=== PATIENT | male | born 1950 | race Caucasian/White ===

== ENCOUNTER 2016-07-30 13:13 | Outpatient (CLI) | payer MEDICARE, OTHER | END 2016-07-30 13:14 | disposition home or self-care (01) | DX: D53.9 Nutritional anemia, unspecified (principal) ==

== ENCOUNTER 2016-08-17 | Outpatient (CLI) | payer MEDICARE, OTHER | END 2016-08-17 09:59 | disposition home or self-care (01) | DX: D53.9 Nutritional anemia, unspecified (principal) ==

== ENCOUNTER 2016-08-22 09:52 | Outpatient (CLI) | payer MEDICARE, OTHER ==
[2016-08-22] MEDS ORDERED: IOPAMIDOL-300 100 ML VIAL IVP ONE (17:36)
== END 2016-08-22 09:53 | disposition critical access hospital (66) ==
DX: R42 Dizziness and giddiness (principal); R11.0 Nausea
CPT/HCPCS: A0425; A0429; Q9967

== ENCOUNTER 2016-08-22 10:21 | Observation (INO) | payer MEDICARE, OTHER ==
[2016-08-22] MEDS ORDERED: HYDROcod/ACETAM 5/325 MG TABLET PO PRN (15:46)
[2016-08-22] MEDS ORDERED: PROCHLORPERAZINE 10 MG/2 ML VIAL IVP PRN (15:46)
[2016-08-22] MEDS ORDERED: SODIUM CHLORIDE FLUSH 0.9% 10 ML SYRINGE IVP PRN (15:46)
[2016-08-22] MEDS ORDERED: HYDROcod/ACETAM 10 MG/325 MG TABLET PO PRN (15:46)
[2016-08-22] MEDS ORDERED: ONDANSETRON 4 MG/2 ML VIAL IVP PRN (15:46)
[2016-08-22] MEDS ORDERED: ACETAMINOPHEN 325 MG TABLET PO PRN (15:46)
[2016-08-22] MEDS ORDERED: IMATINIB MESYLATE 400 MG PO SCH (17:30)
[2016-08-22] MEDS ORDERED: IMATINIB MESYLATE 100 MG PO SCH (17:30)
[2016-08-22] MEDS: SODIUM CHLORIDE 0.9% 1,000 ML IV SCH (17:32)
[2016-08-22] MEDS ORDERED: IOPAMIDOL-300 100 ML VIAL IVP ONE (17:36)
[2016-08-22] MEDS: ASPIRIN 325 MG TABLET PO SCH (19:04)
[2016-08-22] MEDS ORDERED: SODIUM CHLORIDE 0.9% 1,000 ML IV ONE (20:18)
[2016-08-22] MEDS: SODIUM CHLORIDE FLUSH 0.9% 10 ML SYRINGE IVP SCH (20:48)
[2016-08-22] MEDS ORDERED: ATORVASTATIN 40 MG TABLET PO SCH (21:00)
[2016-08-22] MEDS ORDERED: ZOLPIDEM 5 MG TABLET PO PRN (21:48)
[2016-08-23] MEDS: SODIUM CHLORIDE 0.9% 1,000 ML IV SCH ×2 (05:02→12:16)
[2016-08-23] MEDS: SODIUM CHLORIDE FLUSH 0.9% 10 ML SYRINGE IVP SCH (05:02)
[2016-08-23] MEDS ORDERED: SUCRALFATE 1 GM/10 ML UDC PO SCH (07:00)
[2016-08-23] MEDS ORDERED: PANTOPRAZOLE 40 MG TABLET PO SCH (07:00)
[2016-08-23] MEDS ORDERED: MULTIVITAMIN TABLET PO SCH (08:00)
[2016-08-23] MEDS ORDERED: FERROUS GLUCONATE 324 MG TABLET PO SCH (08:00)
[2016-08-23] MEDS: ASPIRIN 325 MG TABLET PO SCH (08:58)
[2016-08-23] MEDS ORDERED: POLYETHYLENE GLYCOL 3350 17 GM PACKET PO SCH (09:00)
== END 2016-08-23 12:40 | disposition home or self-care (01) ==
DX: R27.0 Ataxia, unspecified (principal); R42 Dizziness and giddiness; D50.9 Iron deficiency anemia, unspecified; N17.9 Acute kidney failure, unspecified; R11.2 Nausea with vomiting, unspecified; I65.01 Occlusion and stenosis of right vertebral artery; C92.11 Chronic myeloid leukemia, BCR/ABL-positive, in remission; K21.9 Gastro-esophageal reflux disease without esophagitis; I73.9 Peripheral vascular disease, unspecified; Z87.891 Personal history of nicotine dependence; Z86.718 Personal history of other venous thrombosis and embolism; Z79.899 Other long term (current) drug therapy
CPT/HCPCS: 36415; 70450; 70496; 70498; 80048; 80053; 80061; 81003; 83540; 84466; 84484; 85025; 85610; 93005; 93010; 93306; 96361; 96374; 97161; 99284; 99285; A9270; G0378; G8978; G8979; G8980; Q9967

== ENCOUNTER 2016-08-31 14:34 | Outpatient (CLI) | payer MEDICARE, OTHER | END 2016-08-31 14:35 | disposition home or self-care (01) | DX: D53.9 Nutritional anemia, unspecified (principal) ==

== ENCOUNTER 2016-09-07 08:00 | Outpatient (CLI) | payer MEDICARE, OTHER | END 2016-09-07 08:01 | disposition home or self-care (01) | DX: D53.9 Nutritional anemia, unspecified (principal) ==

== ENCOUNTER 2016-11-22 13:04 | Outpatient (CLI) | payer MEDICARE, OTHER | END 2016-11-22 13:05 | disposition home or self-care (01) | DX: D64.9 Anemia, unspecified (principal) ==

== ENCOUNTER 2017-01-26 08:00 | Outpatient (CLI) | payer MEDICARE, OTHER | END 2017-01-26 08:01 | disposition home or self-care (01) | LOC: LAB.R 08:00 | PROVIDERS: ATTEND Nurse Practitioner Family | DX: L03.012 Cellulitis of left finger (principal) | CPT/HCPCS: 87070; 87205 ==

== ENCOUNTER 2017-08-17 13:50 | Outpatient (CLI) | payer MEDICARE, OTHER | END 2017-08-17 13:51 | disposition home or self-care (01) | LOC: LAB.R 13:50 | PROVIDERS: ATTEND Surgery | DX: L02.211 Cutaneous abscess of abdominal wall (principal) | CPT/HCPCS: 87070; 87077; 87205 ==

== ENCOUNTER 2017-08-21 14:11 | Inpatient (IN) | payer MEDICARE, OTHER ==
[~2017-08-21 14:11] MED LIST: DEXAMETHASONE 4 MG/ML VIAL IVP ONE; LIDOCAINE-MPF 2% 5 ML VIAL IM ONE; MIDAZOLAM 2 MG/2 ML VIAL IVP ONE; ONDANSETRON 4 MG/2 ML VIAL IVP ONE; PROPOFOL 200 MG/20 ML VIAL IVP ONE; SUCCINYLCHOLINE 200 MG/10 ML VIAL IVP ONE; ceFAZolin 1 GM VIAL IV ONE; fentaNYL 100 MCG/2 ML VIAL IVP ONE
[2017-08-21] MEDS ORDERED: SODIUM CHLORIDE FLUSH 0.9% 10 ML SYRINGE IVP PRN (14:21)
[2017-08-21] MEDS ORDERED: IOPAMIDOL-300 100 ML VIAL IVP ONE ×2 (14:22→17:38)
--- NOTE | 2017-08-21 14:49 | POST OP PROGRESS NOTE ---
Subjective - General Procedure Date: 08/21/17 Post Op Days: 0 Procedure Performed: Incision and drainage of left flank abscess - Other Other Information/Narrative: Indication for Procedure: left flank abscess for 1 week status post I and D in office with persistent copious drainage at home. Cultures obtained from office I and D indicate that he is growing E.coli and Klebsiella pneumonia Surgeon: Dr. Spence Anesthesia Provider: Rodney Ellis Pre Operative Diagnosis: left flank abscess Post Operative Diagnosis: same Findings: After obtaining informed consent the patient was brought into the operating room and intubated. He was positioned on the table in the prone position. He was prepped and draped in the usual sterile fashion and a timeout was taken according to protocol. Perioperative antibiotics were administered. An incision was made extending the previous flank incision to 6cm. A minimal amount of purulent fluid was evacuated and cultures were obtained. The surgeons finger was used to open the abscess cavity. It was noting to be traking at least 5 cm deep, cephalad towards the thorax and medially. The flank musculatrure was retracted medially to attempt to determine the end point of the track, however, division of the musculature would be required to fully assess the cavity. I elected to defer further dissection as to not inadvertently enter the thoracic or peritoneal cavities and obtain post operative CT scans. The pulse confectionery maker was used to lavage the wound with saline. After washing with 1 liter of saline the wound bed was inspected for bleeding and hemostasis was achieved with electrocautery. 30 cc of marcaine was injected. The wound was packed with betadine soaked kerlix. A dry dressing was applied and the patient extubated and taken to recovery in stable condition. EBL: minimal Specimen: flank wound cultures Complications: None
[2017-08-21] MEDS ORDERED: LACTATED RINGERS 1,000 ML IV ONE (15:00)
[2017-08-21] MEDS ORDERED: IOPAMIDOL-300 100 ML VIAL ONE (15:11)
[2017-08-21] MEDS ORDERED: BUPIVACAINE 0.25%-EPI 1:200000 PF 30 ML VIAL SUBQ ONE (15:37)
[2017-08-21] MEDS ORDERED: ceFAZolin 1 GM in SODIUM CHLORIDE 0.9% MINIBAG 100 ML IV SCH ×2 (17:00→22:00)
[2017-08-21 18:09] LABS: BASOPHILS % (AUTO) 0.2 %; HGB - HEMOGLOBIN 8.4 g/dL (14.0-18.0); LYMPHOCYTES # (AUTO) 0.1 10^3/uL (1.5-3.5); LYMPHOCYTES % (AUTO) 1.6 %; MEAN CORPUSCULAR HGB CONC 33.7 g/dL (32.0-36.0); MEAN CORPUSCULAR VOLUME 94.9 fL (80.0-94.0); MEAN PLATELET VOLUME 6.5 fL (7.4-11.4); MONOCYTES # (AUTO) 0.1 10^3/uL (0.0-1.0); MONOCYTES % (AUTO) 1.4 %; NEUTROPHILS # (AUTO) 8.4 10^3/uL (1.5-6.6); NEUTROPHILS % (AUTO) 96.8 %; PLT - PLATELET COUNT 439 10^3/uL (130-450); RED BLOOD COUNT 2.62 10^6/uL (4.70-6.10); RED CELL DISTRIBUTION WIDTH 16.2 % (12.0-15.0); WHITE BLOOD COUNT 8.7 x10^3/uL (4.8-10.8)
[2017-08-21] MEDS: LACTATED RINGERS 1,000 ML IV SCH (18:42)
[2017-08-21] MEDS: metroNIDAZOLE 500 MG/100 ML 500 MG/100 ML BAG IV SCH (20:12)
[2017-08-21] MEDS: ONDANSETRON ODT 4 MG TABLET TL PRN (20:12)
--- NOTE | 2017-08-21 21:41 | CT Report ---
EXAM: CT ABDOMEN AND PELVIS EXAM DATE: 08/21/2017 05:39 PM. CLINICAL HISTORY: Flank abscess growing e.coli. Recent surgery today. COMPARISONS: CT 07/08/2015. TECHNIQUE: Routine helical CT imaging was performed through the abdomen and pelvis. IV contrast: 50ML OF ISOVUE 300. Enteric contrast: No. Reconstructions: Coronal and sagittal. In accordance with CT protocol optimization, one or more of the following dose reduction techniques w ere utilized for this exam: automated exposure control, adjustment of mA and/or KV based on patient s ize, or use of iterative reconstructive technique. FINDINGS: Lung Bases: Please see same day CT of the chest for details Liver: Normal. No masses. Gallbladder/Bile Ducts: Unremarkable. Spleen: Normal. Pancreas: Normal. Adrenal Glands: Normal. Kidneys: Normal. No masses or hydronephrosis. Peritoneal Cavity/Bowel: No obstruction. Scattered colonic diverticula without CT evidence of acute d iverticulitis. Otherwise Unremarkable bowel. The appendix is not discretely identified, however no se condary signs of acute appendicitis are seen in the right lower quadrant. Pelvic Organs: Normal. The bladder and visualized pelvic organs are within normal limits. Vasculature: Moderate atherosclerotic calcification of the aorta and its branches. IVC filter at the level of the kidneys. Femoral-femoral bypass. Bones: Mild degenerative changes in the spine, with mild retrolisthesis of L2 on L3. Other: There is an open defect in the left posterolateral chest wall/flank, with packing material wit hin the defect. The defect extends through the abdominal/chest wall musculature into the extraperiton eal space in the abdomen. Packing material and air abuts the left paracolic gutter and upper pole of the left kidney. Packing material abuts the left psoas muscle, and there are additional foci of air i n the left paraspinous muscles. IMPRESSION: 1. Open defect over the left flank with air and packing material extending to the left paracolic gutt er, upper pole of the left kidney, left psoas muscle and left paraspinous muscles. 2. No other acute findings in the abdomen and pelvis. [facility] Referring Provider Line: [phone] SITE ID: [id number]
--- NOTE | 2017-08-21 21:51 | CT Report ---
EXAM: CT CHEST EXAM DATE: 08/21/2017 05:22 PM. CLINICAL HISTORY: Flank abscess extending towards thorax. COMPARISONS: Correlation made to same day CT of the abdomen and pelvis. TECHNIQUE: Routine helical CT imaging was performed through the chest. IV contrast: 50 mL Isovue-300. Reconstructions: Coronal and sagittal. In accordance with CT protocol optimization, one or more of the following dose reduction techniques w ere utilized for this exam: automated exposure control, adjustment of mA and/or KV based on patient s ize, or use of iterative reconstructive technique. FINDINGS: Lungs/Pleura left basilar atelectasis: An open lower chest wall/flank defect is present on the left. Air extends from the open wound superio rly towards the chest, and there is a small amount of air just posterior to the left pleural space. T here is a small left pleural effusion, predominantly basilar. In the remainder of the chest, there is a 6 mm nodule in the right middle lobe. No bronchial thickeni ng, consolidation, or edema. Pulmonary vasculature is normal. No pericardial effusion. No pneumothora x. Mediastinum: Normal. No adenopathy or masses. The heart is normal in size. There is coronary artery c alcification. No pericardial effusion. The great vessels are normal in course and caliber.. Bones: Unremarkable. Visualized Abdomen: Separately reported Other: None. IMPRESSION: 1. Open lower chest wall/flank defect with small amount of air tracking superiorly, just posterior to the left pleural space. Small left pleural effusion. 2. 6 mm nodule in the right middle lobe. Recommend follow-up of the described nodule(s) according to the following guidelines: Fleischner Society Recommendations 2017 MacMahon et al. Radiology 2017 Solid Nodules-Low Risk Patients: 6-8 mm (single) -CT 6-12 at months, then consider CT at 18-24 months Solid Nodules-High Risk Patients: 6-8 mm (single) -CT at 6-12 months, then CT at 18-24 months. [facility] Referring Provider Line: [phone] SITE ID: [id number]
[2017-08-21] MEDS: SODIUM CHLORIDE FLUSH 0.9% 10 ML SYRINGE IVP SCH (22:54)
[2017-08-21] MEDS: ceFAZolin 1 GM in SODIUM CHLORIDE 0.9% MINIBAG 100 ML IV SCH (23:05)
[2017-08-22] MEDS: metroNIDAZOLE 500 MG/100 ML 500 MG/100 ML BAG IV SCH ×4 (02:08→20:52)
[2017-08-22] MEDS: SODIUM CHLORIDE FLUSH 0.9% 10 ML SYRINGE IVP SCH ×3 (04:07→20:57)
[2017-08-22] MEDS: LACTATED RINGERS 1,000 ML IV SCH ×2 (05:24→18:03)
[2017-08-22 05:57] LABS: BASOPHILS % (AUTO) 0.1 %; HGB - HEMOGLOBIN 7.7 g/dL (14.0-18.0); LYMPHOCYTES # (AUTO) 0.3 10^3/uL (1.5-3.5); LYMPHOCYTES % (AUTO) 3.5 %; MEAN CORPUSCULAR HEMOGLOBIN 31.9 pg (27.0-31.0); MEAN CORPUSCULAR HGB CONC 32.7 g/dL (32.0-36.0); MEAN CORPUSCULAR VOLUME 97.9 fL (80.0-94.0); MEAN PLATELET VOLUME 7.2 fL (7.4-11.4); MONOCYTES # (AUTO) 0.2 10^3/uL (0.0-1.0); MONOCYTES % (AUTO) 2.9 %; NEUTROPHILS % (AUTO) 93.5 %; PLT - PLATELET COUNT 394 10^3/uL (130-450); RED BLOOD COUNT 2.42 10^6/uL (4.70-6.10); RED CELL DISTRIBUTION WIDTH 16.3 % (12.0-15.0); WHITE BLOOD COUNT 7.5 x10^3/uL (4.8-10.8)
[2017-08-22] MEDS: ceFAZolin 1 GM in SODIUM CHLORIDE 0.9% MINIBAG 100 ML IV SCH ×3 (06:01→23:08)
[2017-08-22 06:07] LABS: CALCIUM 7.8 mg/dL (8.5-10.3); CREATININE 2.1 mg/dL (0.6-1.2)
[2017-08-22] MEDS: PANTOPRAZOLE 40 MG TABLET PO SCH (06:27)
[2017-08-22] MEDS: POLYETHYLENE GLYCOL 3350 17 GM PACKET PO SCH (08:26)
--- NOTE | 2017-08-22 11:55 | PROVIDER PROGRESS NOTE ---
Subjective - General Admit Date: 08/21/17 Procedure Date: 08/21/17 Post Op Days: 1 Procedure Performed: Incision and drainage of left flank abscess - Review of Systems Wound/Incisions: positive: Other (external portion of dressing changed overnight as it soaked through.) General: positive: No symptoms, Fever Pulmonary: positive: Shortness of breath Cardiovascular: positive: No symptoms Gastrointestinal: positive: Other (mild flank pain). negative: Nausea, Vomiting , Abdominal pain Genitourinary: positive: No symptoms Psychiatric: positive: No symptoms Objective - Patient Data Reviewed Vital Signs: Yes Vital Signs: Vital Signs x48h Temp Pulse Resp BP Pulse Ox 08/22/17 07:34 36.9 C 84 16 113/64 98 08/22/17 05:33 37.0 C 81 18 123/66 96 Weight: Weight 08/20/17 08/21/17 08/22/17 23:59 23:59 23:59 Weight (kg) 54 kg Intake & Output: Intake and Output Totals x24h 08/20/17 08/21/17 08/22/17 23:59 23:59 23:59 Intake Total 209.260 1488.667 Output Total 300 Balance 033.083 6552.667 - Lab Results Lab Results: 08/22/17 05:28 08/22/17 05:28 Other Lab Results: Lab Results x24hrs 08/22/17 08/22/17 08/21/17 Range/Units 05:28 05:28 17:56 WBC 7.5 8.7 (4.8-10.8) x10^3/uL RBC 2.42 L 2.62 L (4.70-6.10) 10^6/uL Hgb 7.7 L 8.4 L (14.0-18.0) g/dL Hct 23.7 L 24.8 L (42.0-52.0) % MCV 97.9 H 94.9 H (80.0-94.0) fL MCH 31.9 H 32.0 H (27.0-31.0) pg MCHC 32.7 33.7 (32.0-36.0) g/dL RDW 16.3 H 16.2 H (12.0-15.0) % Plt Count 394 439 (130-450) 10^3/uL MPV 7.2 L 6.5 L (7.4-11.4) fL Neut # 7.0 H 8.4 H (1.5-6.6) 10^3/uL Lymph # 0.3 L 0.1 L (1.5-3.5) 10^3/uL Coffee # 0.2 0.1 (0.0-1.0) 10^3/uL Eos # 0.0 0.0 (0.0-0.7) 10^3/uL Baso # 0.0 0.0 (0.0-0.1) 10^3/uL Absolute Nucleated RBC 0.00 0.00 x10^3/uL Nucleated RBC % 0.0 0.0 /100WBC Sodium 133 L (135-145) mmol/L Potassium 4.5 (3.5-5.0) mmol/L Chloride 103 (101-111) mmol/L Carbon Dioxide 21 (21-32) mmol/L Anion Gap 9.0 (6-13) BUN 25 H (6-20) mg/dL Creatinine 2.1 H (0.6-1.2) mg/dL Estimated GFR (MDRD) 32 L (>89) Glucose 162 H (70-100) mg/dL Calcium 7.8 L (8.5-10.3) mg/dL - Current Medications Current Medications: Current Medications Generic Name Dose Route Start Last Admin Trade Name Freq PRN Reason Stop Dose Admin Lactated Ringer's 1,000 mls @ 100 mls/hr 08/21/17 17:30 08/22/17 05:24 Lr IV 100 mls/hr .Q10H CASPER Administration Metronidazole 500 mg in 100 mls @ 100 mls/hr 08/21/17 20:00 08/22/17 09:42 Flagyl 500 Mg/100 Ml IV Infused Q6H CASPER Infusion Cefazolin Sodium 1 gm/ Sodium 100 mls @ 200 mls/hr 08/21/17 23:00 08/22/17 06 :35 Chloride IV Infused Q8H CASPER Infusion Ondansetron HCl 4 mg 08/21/17 14:21 08/21/17 20:12 Zofran Odt TL 4 mg Q6HR PRN Administration Nausea / Vomiting Pantoprazole Sodium 40 mg 08/22/17 07:00 08/22/17 06:27 Protonix PO 40 mg QDAC CASPER Administration Polyethylene Glycol 17 gm 08/22/17 09:00 08/22/17 08:26 Miralax PO Not Given DAILY CASPER Sodium Chloride 10 ml 08/21/17 22:00 08/22/17 04:07 Normal Saline Flush 0.9% IVP Not Given Q8HR CASPER - Physical Exam Wound/Incisions: positive: Other (dressing clean, dry and intact) General Appearance: positive: No acute distress Respiratory: positive: No respiratory distress Cardiovascular: positive: Regular rate & rhythm Abdomen: positive: Non-tender Back: positive: Other (left flank dressing dry and intact.) Neurologic/Psychiatric: positive: Oriented x3 Impression/Plan - Problem List Problem List: s/p I and D of left flank recurrent abscess with associated retroperitoneal abscess. - Reviewed CT abd with radiologist. There appears to be a small bowel anastomosis near the abscess site. 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 - Will plan for vac placement and discharge to home on Bactrim - Will require CT abd with oral contrast for definitive diagnosis of potential fistula from anastomotic site - Wound consult pending today.
[2017-08-22] MEDS: HYDROcod/ACETAM 5/325 MG TABLET PO PRN ×2 (18:38→23:08)
[2017-08-22] MEDS: MORPHINE 2 MG/ML CARPUJECT IVP PRN (20:52)
[2017-08-23] MEDS: MORPHINE 2 MG/ML CARPUJECT IVP PRN ×2 (00:43→13:55)
[2017-08-23] MEDS: metroNIDAZOLE 500 MG/100 ML 500 MG/100 ML BAG IV SCH ×4 (02:14→19:46)
[2017-08-23] MEDS: HYDROcod/ACETAM 5/325 MG TABLET PO PRN ×4 (03:17→22:37)
[2017-08-23] MEDS: PANTOPRAZOLE 40 MG TABLET PO SCH (06:19)
[2017-08-23] MEDS: ceFAZolin 1 GM in SODIUM CHLORIDE 0.9% MINIBAG 100 ML IV SCH ×3 (06:54→22:38)
[2017-08-23] MEDS: LACTATED RINGERS 1,000 ML IV SCH ×2 (07:44→19:46)
[2017-08-23] MEDS: SODIUM CHLORIDE FLUSH 0.9% 10 ML SYRINGE IVP SCH ×3 (07:45→19:50)
[2017-08-23] MEDS: POLYETHYLENE GLYCOL 3350 17 GM PACKET PO SCH (07:45)
--- NOTE | 2017-08-23 15:13 | PROVIDER PROGRESS NOTE ---
Subjective - General Admit Date: 08/22/17 Procedure Date: 08/21/17 Post Op Days: 2 Procedure Performed: Incision and drainage of left flank abscess - Review of Systems Wound/Incisions: positive: Other (dressing clean, dry and intact) General: positive: No symptoms, Fever Pulmonary: positive: Shortness of breath Cardiovascular: positive: No symptoms Gastrointestinal: positive: Other (mild flank pain). negative: Nausea, Vomiting , Abdominal pain Genitourinary: positive: No symptoms Psychiatric: positive: No symptoms Objective - Patient Data Reviewed Vital Signs: Yes Vital Signs: Vital Signs x48h Temp Pulse Resp BP Pulse Ox 08/23/17 08:08 36.7 C 87 18 122/74 96 Weight: Weight 08/21/17 08/22/17 08/23/17 23:59 23:59 23:59 Weight (kg) 54 kg Intake & Output: Intake and Output Totals x24h 08/21/17 08/22/17 08/23/17 23:59 23:59 23:59 Intake Total 654.105 0267.667 1521.667 Output Total 600 950 Balance 345.802 5698.667 571.667 - Lab Results Lab Results: 08/22/17 05:28 08/22/17 05:28 Other Lab Results: Lab Results x24hrs 08/23/17 Range/Units 14:06 POC Whole Bld Glucose 144 H (70 - 100) mg/dL - Current Medications Current Medications: Current Medications Generic Name Dose Route Start Last Admin Trade Name Freq PRN Reason Stop Dose Admin Acetaminophen/Hydrocodone Bitart 1 tab 08/21/17 14:21 08/23/17 07:45 [place] 5/325 PO 1 tab Q4HR PRN Administration Pain 5 to 7 Lactated Ringer's 1,000 mls @ 100 mls/hr 08/21/17 17:30 08/23/17 09:20 Lr IV 100 mls/hr .Q10H CASPER Infusion Metronidazole 500 mg in 100 mls @ 100 mls/hr 08/21/17 20:00 08/23/17 13:31 Flagyl 500 Mg/100 Ml IV 100 mls/hr Q6H CASPER Administration Cefazolin Sodium 1 gm/ Sodium 100 mls @ 200 mls/hr 08/21/17 23:00 08/23/17 15 :00 Chloride IV 200 mls/hr Q8H CASPER Administration Morphine Sulfate 2 mg 08/21/17 14:21 08/23/17 13:55 Morphine (Carpuject) IVP 2 mg Q2HR PRN Administration Pain 8 to 10 Ondansetron HCl 4 mg 08/21/17 14:21 08/21/17 20:12 Zofran Odt TL 4 mg Q6HR PRN Administration Nausea / Vomiting Pantoprazole Sodium 40 mg 08/22/17 07:00 08/23/17 06:19 Protonix PO 40 mg QDAC CASPER Administration Polyethylene Glycol 17 gm 08/22/17 09:00 08/23/17 07:45 Miralax PO Not Given DAILY CASPER Sodium Chloride 10 ml 08/21/17 22:00 08/23/17 14:44 Normal Saline Flush 0.9% IVP Not Given Q8HR CASPER - Physical Exam Wound/Incisions: positive: Dressing dry and intact, No drainage General Appearance: positive: No acute distress Respiratory: positive: No respiratory distress Cardiovascular: positive: Regular rate & rhythm Abdomen: positive: Non-tender, No distention Extremities: positive: No pedal edema Neurologic/Psychiatric: positive: Oriented x3 Impression/Plan - Problem List Problem List: s/p I and D of left flank abscess POD 2 - We have ordered an outpatient VAC but it has not arrived yet. The patient will require VAC placement prior to discharge home. Expect VAC to arrive tomorrow. - Continue packing changes daily until VAC arrives - Continue IV antibiotics. Will transition to oral upon DC
[2017-08-23] MEDS ORDERED: IMATINIB PO SCH (17:00)
[2017-08-23] MEDS: ONDANSETRON ODT 4 MG TABLET TL PRN (17:37)
[2017-08-24] MEDS: metroNIDAZOLE 500 MG/100 ML 500 MG/100 ML BAG IV SCH ×2 (02:45→08:16)
[2017-08-24] MEDS: HYDROcod/ACETAM 5/325 MG TABLET PO PRN ×3 (02:47→11:33)
[2017-08-24] MEDS: ceFAZolin 1 GM in SODIUM CHLORIDE 0.9% MINIBAG 100 ML IV SCH (06:44)
[2017-08-24] MEDS: PANTOPRAZOLE 40 MG TABLET PO SCH (06:47)
[2017-08-24] MEDS: SODIUM CHLORIDE FLUSH 0.9% 10 ML SYRINGE IVP SCH (07:47)
[2017-08-24] MEDS: LACTATED RINGERS 1,000 ML IV SCH ×2 (07:48→09:55)
[2017-08-24 08:08] VITALS: BP 141/71
[2017-08-24] MEDS: MORPHINE 2 MG/ML CARPUJECT IVP PRN (08:33)
[2017-08-24] MEDS: POLYETHYLENE GLYCOL 3350 17 GM PACKET PO SCH (09:22)
--- NOTE | 2017-08-24 09:54 | Discharge Plan ---
Discharge Plan Disposition: 01 Home, Self Care Condition: Fair Diet: Regular Shower Restrictions: Yes (see instructions) Driving Restrictions: Yes (not while on narcotics) Assistance Devices: Walker Additional Instructions or Follow Up instructions: You may remove your dressing and shower on vac change days. Otherwise sponge bathe as not to get the vac dressing wet. Take you antibiotics as directed. Follow up in the wound clinic Tuesday and Tuesday and Dr. Spence's office on Wednesdays. An MRI of your abdomen has been ordered; the radiology department will be calling you to schedule this appointment. Call Dr. Spence's office to make your appointment for next Tuesday. No Smoking: If you smoke, Please STOP! Call for help. Follow-up with: Blanca Lowe ARNP [Primary Care Provider] -
--- NOTE | 2017-08-24 09:59 | DISCHARGE SUMMARY ---
Discharge Summary Admit Date: 08/21/17 Discharge Date: 08/24/17 Condition at Discharge: Fair Discharge Disposition: 01 Home, Self Care - DIAGNOSES Admission Diagnoses: left flank abscess Discharge Diagnoses with Status of Each Condition: left flank and retroperitoneal abscess status post operative incision and drainage. - HPI History of Present Illness: This is a 67-year-old gentleman who has a history of a left flank abscess requiring operative I&D approximately 2 years ago. He had a prolonged wound complication requiring VAC management for many months and eventually healed this wound. Approximately 1 year later he represented to my office with similar symptoms. An office incision and drainage was performed, however, the patient continued to have copious amounts of drainage from the wound and required operative incision and drainage. - HOSPITAL COURSE Hospital Course: He was taken to the operating room on his day of admission and was noted to have a very deep abscess pocket tracking all the way to his retroperitoneum. I was unable to fully access the abscess cavity due to the track going between his ribs. CT imaging postoperatively demonstrated the abscess cavity to track between his kidney and diaphragm and there appeared to be a surgical anastomosis near the abscess. 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 At that time he was a an alcoholic and it was presumed that his pseudocyst was secondary to alcohol abuse. Following his incision and drainage his wound was packed and a wound consult placed for a VAC placement. Eventually the VAC was placed and the patient was stable for discharge home.He was noted to be afebrile with a normal white count prior to discharge. He was placed on Unasyn while hospitalized and will be discharged home on a 2 week course of Bactrim. His cultures have demonstrated Klebsiella pneumonia and E. coli which are both sensitive to Bactrim. - ALLERGIES Allergies/Adverse Reactions: Allergies Allergy/AdvReac Type Severity Reaction Status Date / Time No Known Drug Allergies Allergy Verified 05/17/17 11:55 - MEDICATIONS Home Medications: Ambulatory Orders Medication Instructions Recorded Confirmed Imatinib Mesylate [Gleevec] 400 mg PO DAILY 11/28/12 08/21/17 Multivitamin [Multivitamins] 1 each PO DAILY 11/28/12 08/21/17 Ondansetron [Zofran] 4 mg PO Q6H PRN 05/04/16 08/21/17 Omeprazole 20 mg PO BIDAC 06/01/16 08/21/17 Ferrous Gluconate 324 mg PO BID 08/22/16 08/21/17 Imatinib Mesylate [Gleevec] 200 mg PO DAILY 08/22/16 08/21/17 Acetaminophen [Tylenol] 650 mg PO Q4HR PRN #0 tablet 08/23/16 08/21/17 HYDROcod/ACETAM 5/325 [[place] 5/325] 1 tab PO Q6H PRN 08/21/17 08/21/17 - PHYSICAL EXAM AT DISCHARGE General Appearance: positive: No acute distress Respiratory: positive: No respiratory distress Cardiovascular: positive: Regular rate & rhythm Abdomen: positive: Non-tender, No distention Back: positive: Other (flank dressing clean, dry and intact) Extremities: positive: No pedal edema Neurologic/Psychiatric: positive: Oriented x3 - LABS Result Diagrams: 08/22/17 05:28 08/22/17 05:28 - FOLLOW UP Follow Up: The patient will receive VAC changes on Mondays and Fridays with the [facility] and will be followed in my office for wound checks and VAC changes on Wednesdays. Additionally I have ordered an outpatient MRCP to evaluate his pancreatic duct as I am concerned that his cyst enterostomy is the source of his recurrent retroperitoneal abscess. This could be secondary to a pancreatic leak versus an enteric leak. Any leak that may be present is tracking to his abscess cavity and at this point is controlled with VAC therapy.Additionally he may require CT scan with oral contrast to determine if any evidence of leak from the enteric anastomosis is present. Finally a fistulogram may be considered if the above measures do not delineate any source of the leak. All of these exams can be performed on an outpatient basis as the patient has no active signs of systemic infection. - TIME SPENT Time Spent in Discharge (Minutes): 30
== END 2017-08-24 13:50 | disposition home or self-care (01) | DRG 373 ==
LOC: SDS 14:11 → OBS 14:21 → OBSVTOIN 08-22 15:55 → MS2 08-22 16:43
PROVIDERS: ADMIT Surgery; ATTEND Surgery
PROC: 0W9F0ZZ Drainage of Abdominal Wall, Open Approach (ICD-10-PCS; principal; 2017-08-21 14:00)
DX: K65.1 Peritoneal abscess (principal); K68.19 Other retroperitoneal abscess; B96.20 Unspecified Escherichia coli [E. coli] as the cause of diseases classified elsewhere; B96.1 Klebsiella pneumoniae [K. pneumoniae] as the cause of diseases classified elsewhere; K21.9 Gastro-esophageal reflux disease without esophagitis; E78.5 Hyperlipidemia, unspecified; R53.83 Other fatigue; F10.21 Alcohol dependence, in remission; Z79.899 Other long term (current) drug therapy; Z98.890 Other specified postprocedural states; Z86.718 Personal history of other venous thrombosis and embolism; Z87.19 Personal history of other diseases of the digestive system; Z87.891 Personal history of nicotine dependence
CPT/HCPCS: 36415; 71260; 74177; 80048; 85025; 87040; 87070; 87077; 87205; 96365; 96366; 96367; 96375

== ENCOUNTER 2017-08-26 10:27 | Outpatient (CLI) | payer MEDICARE, OTHER ==
[2017-08-26] MEDS ORDERED: IOPAMIDOL-300 50 ML VIAL PO ONE (12:43)
[2017-08-26] MEDS ORDERED: IOPAMIDOL-300 100 ML VIAL ONE (12:44)
[2017-08-26] MEDS ORDERED: IOPAMIDOL-300 100 ML VIAL IVP ONE (12:45)
[2017-08-26] MEDS ORDERED: IOPAMIDOL-300 50 ML VIAL ONE (12:46)
--- NOTE | 2017-08-26 14:07 | CT Report ---
DATE OF SERVICE: 08/26/2017 CT OF THE ABDOMEN AND PELVIS WITH CONTRAST: 08/26/2017 CLINICAL INDICATION: Draining left flank wound, history of pancreatic cyst enterostomy TECHNIQUE: Axial CT images of the abdomen and pelvis were obtained with 50 mL Isovue 300 intravenously, due to the patient's renal dysfunction, as well as oral contrast. COMPARISON: 08/21/2017. FINDINGS: Limited evaluation of the lung bases demonstrates a trace left pleural effusion and basilar atelectasis. ABDOMEN: The left flank wound is again seen, with hyperdense material within the wound. This appears to track back to the surgical anastomosis at the tail of the pancreas, at the site of previous pancreatic cyst enterostomy. Additionally, oral contrast has not yet reached the colon, so the hyperdense material in the wound cannot be colonic contents. The liver, spleen, right kidney, and adrenal glands appear unremarkable. The left kidney demonstrates normal enhancement. No hydronephrosis is seen. Mild small bowel dilatation is present, likely representing ileus. The gallbladder is not dilated. PELVIS: Trace free fluid is present in the pelvis. No pelvic adenopathy is seen. Bypass graft is noted in the anterior pelvis. Osseous structures demonstrate degenerative changes. IMPRESSION: ETIOLOGY OF THE DRAINING LEFT FLANK WOUND APPEARS TO BE THE ANASTOMOSIS OF THE PREVIOUS PANCREATIC CYST ENTEROSTOMY. NO LOOP OF COLON DIRECTLY ABUTS THE PATH OF THE COLLECTION DRAINAGE, AND NO ORAL CONTRAST HAS REACHED THE COLON. The findings discussed with Dr. Spence on 08/26/2017 at 12:25 p[address] In accordance with CT protocol optimization, one or more of the following dose reduction techniques were utilized for this exam: automated exposure control, adjustment of mA and/or KV based on patient size, or use of iterative reconstructive technique. TD: 08/26/2017 14:06
== END 2017-08-26 10:28 | disposition home or self-care (01) ==
LOC: DI 10:27
PROVIDERS: ATTEND Surgery
DX: K68.19 Other retroperitoneal abscess (principal); L02.212 Cutaneous abscess of back [any part, except buttock and flank]
CPT/HCPCS: 74177

== ENCOUNTER 2017-08-26 13:45 | Emergency (ER) | payer MEDICARE, OTHER ==
[2017-08-26 14:59] LABS: BASOPHILS % (AUTO) 0.4 %; EOSINOPHILS # (AUTO) 0.1 10^3/uL (0.0-0.7); EOSINOPHILS % (AUTO) 0.6 %; HGB - HEMOGLOBIN 7.9 g/dL (14.0-18.0); LYMPHOCYTES # (AUTO) 0.6 10^3/uL (1.5-3.5); LYMPHOCYTES % (AUTO) 5.2 %; MEAN CORPUSCULAR HEMOGLOBIN 31.6 pg (27.0-31.0); MONOCYTES # (AUTO) 0.8 10^3/uL (0.0-1.0); NEUTROPHILS # (AUTO) 9.4 10^3/uL (1.5-6.6); NEUTROPHILS % (AUTO) 86.8 %; PLT - PLATELET COUNT 325 10^3/uL (130-450); RED BLOOD COUNT 2.51 10^6/uL (4.70-6.10); RED CELL DISTRIBUTION WIDTH 16.9 % (12.0-15.0); WHITE BLOOD COUNT 10.8 x10^3/uL (4.8-10.8)
[2017-08-26 15:03] LABS: INR 1.3 (0.8-1.2); PT - PROTHROMBIN TIME 14.1 secs (9.9-12.6)
[2017-08-26 15:09] LABS: ALBUMIN 2.9 g/dL (3.2-5.5); ALBUMIN/GLOBULIN RATIO 0.8 (1.0-2.2); ALKALINE PHOSPHATASE 75 IU/L (42-121); ALT ALANINE AMINOTRANSFERASE < 10 IU/L (10-60); AST ASPARTATE AMINOTRANSFERASE 39 IU/L (10-42); BILIRUBIN,TOTAL 0.4 mg/dL (0.2-1.0); BUN - BLOOD UREA NITROGEN 12 mg/dL (6-20); CALCIUM 8.1 mg/dL (8.5-10.3); CARBON DIOXIDE - CO2 20 mmol/L (21-32); CHLORIDE 100 mmol/L (101-111); CREATININE 1.8 mg/dL (0.6-1.2); GFR - MDRD 38 (>89); GLUCOSE 104 mg/dL (70-100); LIPASE 42 U/L (22-51); SODIUM 130 mmol/L (135-145); TOTAL PROTEIN 6.4 g/dL (6.7-8.2)
--- NOTE | 2017-08-26 15:45 | ED Physician Documentation ---
PD HPI SKIN - Stated complaint Stated Complaint: WOUND CHECK - Chief complaint Chief Complaint: Wound - History obtained from History obtained from: Patient - History of Present Illness Timing - onset: How many weeks ago (2-3) Timing - details: Gradual onset (had had infected cyst left flank which abscessed and then had prolonged healing. This was) Location: Back (left flank wound with drainage that is not improving with oral abx. [id number] showing e.coli and Klebsiella, and enterobacter. 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 Dr. Spence had patient come to ED for presumed surgical intervention or transfer. She is in a case in the OR, and will see patient when out. Patient is comfortable and without problems here. he is informed of the results and plan. He is okay with waiting.) Quality / character: Discolored, Draining. No: Painful Associated symptoms: No: Fever, Myalgias, N/V/D Similar symptoms before: Diagnosis (had infected cyst 3 years ago that took awhile to heal (a year or more). Finally healed. Now started with redness and drainage from same area without skin wound initially. Seen by PCP then Surgery clinic with I&D few days ago. Culture showing enteric pathogens. So Dr. Spence ordered CT scan of abd. This showed fistula from bowel.) Recently seen: Clinic Review of Systems Constitutional: denies: Fever, Chills Nose: denies: Rhinorrhea / runny nose, Congestion Throat: denies: Sore throat Respiratory: denies: Cough GI: denies: Abdominal Pain, Vomiting, Diarrhea Musculoskeletal: reports: Back pain Neurologic: denies: Generalized weakness, Near syncope PD PAST MEDICAL HISTORY - Past Medical History Cardiovascular: Peripheral Vascular Disease, Deep vein thrombosis Respiratory: None Neuro: None Endocrine/Autoimmune: None, Other GI: GERD : Other HEENT: None Psych: None Musculoskeletal: None Derm: None - Past Surgical History Past Surgical History: Yes General: Colonoscopy Cardiovascular: Fempop bypass, Vascular surgery - Present Medications Home Medications: Ambulatory Orders Medication Instructions Recorded Confirmed Imatinib Mesylate [Gleevec] 400 mg PO DAILY 11/28/12 08/26/17 Multivitamin [Multivitamins] 1 each PO DAILY 11/28/12 08/26/17 Ondansetron [Zofran] 4 mg PO Q6H PRN 05/04/16 08/26/17 Omeprazole 20 mg PO BIDAC 06/01/16 08/26/17 Ferrous Gluconate 324 mg PO BID 08/22/16 08/26/17 Imatinib Mesylate [Gleevec] 200 mg PO DAILY 08/22/16 08/26/17 HYDROcod/ACETAM 5/325 [[place] 5/325] 1 tab PO Q6H PRN 08/21/17 08/26/17 Sulfamethoxazole/Trimethoprim 1 tab PO BID 08/26/17 08/26/17 [Bactrim 400-80 mg Tablet] - Allergies Allergies/Adverse Reactions: Allergies Allergy/AdvReac Type Severity Reaction Status Date / Time No Known Drug Allergies Allergy Verified 05/17/17 11:55 - Social History Does the pt smoke?: Yes Smoking Status: Former smoker Does the pt drink ETOH?: Yes Does the pt have substance abuse?: No - Immunizations Immunizations are current?: Yes - POLST Patient has POLST: No POLST Status: DPA for Health Care PD ED PE NORMAL - Vitals Vital signs reviewed: Yes - General General: Alert and oriented X 3, No acute distress, Well developed/nourished, Other (somewhat pale. Last meal was dinner last evening. ) - Neck Neck: Supple, no meningeal sign, No adenopathy - Cardiac Cardiac: RRR, No murmur - Respiratory Respiratory: Clear bilaterally - Abdomen Abdomen: Normal bowel sounds, Soft, Non tender, Non distended - Back Back: Other (left flank with bandaged wound that has some redness and drainage. bandage removal shows an open wound about 3 cm diameter, with redness around the edges. Some packing in place. No abd tenderness. ) - Derm Derm: Warm and dry - Extremities Extremities: No deformity, No tenderness to palpate, Normal ROM s pain - Neuro Neuro: Alert and oriented X 3, No motor deficit, Normal speech Results - Vitals Vitals: Vital Signs - 24 hr 08/26/17 08/26/17 08/26/17 13:55 15:49 18:13 Temperature 36.8 C 36.7 C 37.9 C H Heart Rate 101 H 105 H 102 H Respiratory 20 16 16 Rate Blood Pressure 125/73 140/74 H 145/75 H O2 Saturation 96 100 97 08/26/17 19:30 Temperature Heart Rate 100 Respiratory 19 Rate Blood Pressure 146/75 H O2 Saturation 100 Oxygen O2 Source Room air - Labs Labs: Laboratory Tests 08/26/17 08/26/17 08/26/17 14:42 14:42 14:42 WBC 10.8 RBC 2.51 L Hgb 7.9 L Hct 24.1 L MCV 96.0 H MCH 31.6 H MCHC 33.0 RDW 16.9 H Plt Count 325 MPV 7.0 L Neut # 9.4 H Lymph # 0.6 L [place] # 0.8 Eos # 0.1 Baso # 0.0 Absolute Nucleated RBC 0.00 Nucleated RBC % 0.0 PT 14.1 H INR 1.3 H APTT 25.1 Sodium 130 L Potassium 3.3 L Chloride 100 L Carbon Dioxide 20 L Anion Gap 10.0 BUN 12 Creatinine 1.8 H Estimated GFR (MDRD) 38 L Glucose 104 H Calcium 8.1 L Total Bilirubin 0.4 AST 39 ALT < 10 L Alkaline Phosphatase 75 Total Protein 6.4 L Albumin 2.9 L Globulin 3.5 Albumin/Globulin Ratio 0.8 L Lipase 42 - Rads (name of study) abd CT Radiology: Prelim report reviewed (bowel to skin fistula upper abdomen.) PD MEDICAL DECISION MAKING - ED course Complexity details: reviewed old records (labs and CT abdomen from today), reviewed results, considered differential, d/w patient, d/w PMD (Talked with Dr. Spence when she got out of surgery, and she came to see patient. She feels the surgery for this is more extensive than doable at [facility] and directs transfer to [facility]. ), d/w call center support consultant (Dr. Mckeon, contact lens manufacturer for surgery at [facility]. With the patient being stable, draining has been for awhile (couple of weeks) and no fever/elevated WBC/peritoneal signs, he felt the patient did not need emergent surgery and would not get surgery over the weekend if transferred. Suggests outpatient care and his office will see patient Tuesday/Tuesday. 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 Use the colostomy bag over the site to help collect drainage. The [facility] surgery office (Dr. Adair) we will give you a call on Tuesday to arrange an appointment for that day or the next day. Dr. Adair said they will presumably need to do surgery to fix the fistula. However it does not seem emergent and so he would not do it over the weekend necessarily less signs of worse infection such as fever, abdominal pain, vomiting, other concerns. Otherwise has been draining and allow it to keep draining and see them early next week for more definitive care with a planned surgery. Discharge Date/Time: 08/26/17 19:31
[2017-08-26 19:32] VITALS: BP 146/75
== END 2017-08-26 19:31 | disposition home or self-care (01) ==
LOC: ED 13:45
DX: K63.2 Fistula of intestine (principal); I73.9 Peripheral vascular disease, unspecified; Z86.718 Personal history of other venous thrombosis and embolism; K21.9 Gastro-esophageal reflux disease without esophagitis; Z87.891 Personal history of nicotine dependence
CPT/HCPCS: 80053; 83690; 85025; 85610; 85730; 87040; 99283

== ENCOUNTER 2017-08-29 10:26 | Outpatient (CLI) | payer MEDICARE, OTHER | END 2017-08-29 10:27 | disposition critical access hospital (66) | LOC: EMS 10:26 | PROVIDERS: ATTEND Surgery | DX: R10.9 Unspecified abdominal pain (principal) | CPT/HCPCS: A0425; A0427 ==

== ENCOUNTER 2017-08-29 11:16 | Emergency (ER) | payer MEDICARE, OTHER ==
[2017-08-29] MEDS ORDERED: SODIUM CHLORIDE 0.9% 1,000 ML IV ONE (11:28)
[2017-08-29] MEDS ORDERED: MORPHINE 2 MG/ML CARPUJECT IVP STA ×4 (11:49→22:11)
[2017-08-29 12:00] LABS: BASOPHILS % (AUTO) 0.4 %; EOSINOPHILS % (AUTO) 0.2 %; HGB - HEMOGLOBIN 7.9 g/dL (14.0-18.0); LYMPHOCYTES # (AUTO) 0.6 10^3/uL (1.5-3.5); LYMPHOCYTES % (AUTO) 8.9 %; MEAN CORPUSCULAR HEMOGLOBIN 31.6 pg (27.0-31.0); MEAN CORPUSCULAR HGB CONC 32.8 g/dL (32.0-36.0); MEAN CORPUSCULAR VOLUME 96.3 fL (80.0-94.0); MONOCYTES # (AUTO) 0.4 10^3/uL (0.0-1.0); MONOCYTES % (AUTO) 6.7 %; NEUTROPHILS # (AUTO) 5.5 10^3/uL (1.5-6.6); NEUTROPHILS % (AUTO) 83.8 %; PLT - PLATELET COUNT 295 10^3/uL (130-450); RED BLOOD COUNT 2.51 10^6/uL (4.70-6.10); RED CELL DISTRIBUTION WIDTH 17.1 % (12.0-15.0); WHITE BLOOD COUNT 6.5 x10^3/uL (4.8-10.8)
[2017-08-29] MEDS ORDERED: MORPHINE 2 MG/ML CARPUJECT ONE (12:01)
[2017-08-29 12:15] LABS: ALBUMIN 2.7 g/dL (3.2-5.5); ALBUMIN/GLOBULIN RATIO 0.8 (1.0-2.2); BILIRUBIN,TOTAL 0.5 mg/dL (0.2-1.0); CALCIUM 8.1 mg/dL (8.5-10.3); CREATININE 1.7 mg/dL (0.6-1.2); TOTAL PROTEIN 5.9 g/dL (6.7-8.2)
--- NOTE | 2017-08-29 13:17 | ED Physician Documentation ---
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, chronic anemia, GIB, DVT with IVC filter, GERD, CKD stage III, PVD and recurrent pancreatitis - and now a draining fistual to his L flank region prior pancreatitis 2/2 EtOH mid to left upper abd pain same as prior pancreatitis but states no EtOH for a few weeks + dry heaves + diarrhea no fever also has a draining wound that per pt and EMR is 2/2 a fistual to his prior pancreatic pseudocyst enterostomy- last CT was 3 days ago - followed by Dr Spence Review of Systems Constitutional: denies: Fever, Chills Cardiac: denies: Chest pain / pressure Respiratory: denies: Dyspnea GI: reports: Abdominal Pain, Nausea, Vomiting, Diarrhea PD PAST MEDICAL HISTORY - Past Medical History Past Medical History: Yes Cardiovascular: Peripheral Vascular Disease, Deep vein thrombosis Respiratory: None Neuro: None Endocrine/Autoimmune: None, Other GI: GERD, Pancreatitis : Other HEENT: None Psych: None Musculoskeletal: None Derm: None - Past Surgical History Past Surgical History: Yes General: Colonoscopy Cardiovascular: Fempop bypass, Vascular surgery - Present Medications Home Medications: Ambulatory Orders Medication Instructions Recorded Confirmed Imatinib Mesylate [Gleevec] 400 mg PO DAILY 11/28/12 08/26/17 Multivitamin [Multivitamins] 1 each PO DAILY 11/28/12 08/26/17 Ondansetron [Zofran] 4 mg PO Q6H PRN 05/04/16 08/26/17 Omeprazole 20 mg PO BIDAC 06/01/16 08/26/17 Ferrous Gluconate 324 mg PO BID 08/22/16 08/26/17 Imatinib Mesylate [Gleevec] 200 mg PO DAILY 08/22/16 08/26/17 HYDROcod/ACETAM 5/325 [[place] 5/325] 1 tab PO Q6H PRN 08/21/17 08/26/17 Sulfamethoxazole/Trimethoprim 1 tab PO BID 08/26/17 08/26/17 [Bactrim 400-80 mg Tablet] - Allergies Allergies/Adverse Reactions: Allergies Allergy/AdvReac Type Severity Reaction Status Date / Time No Known Drug Allergies Allergy Verified 05/17/17 11:55 - Social History Does the pt smoke?: Yes Smoking Status: Former smoker Does the pt drink ETOH?: Yes Does the pt have substance abuse?: No - Immunizations Immunizations are current?: Yes - POLST Patient has POLST: No POLST Status: DPA for Health Care PD ED PE NORMAL - Vitals Vital signs reviewed: Yes - General General: Other (pale) - HEENT HEENT: Atraumatic - Cardiac Cardiac: RRR - Respiratory Respiratory: No respiratory distress, Clear bilaterally - Abdomen Abdomen: Soft, Other (TTP with vol guarding to mupper abd, no pulsatile mass) - Back Back: Other (large deep wound draining clear orange foul smelling liquid into an ostomy bag) - Derm Derm: Other (pale) Results - Vitals Vitals: Vital Signs - 24 hr 08/29/17 08/29/17 08/29/17 11:20 13:23 15:32 Temperature 36.1 C L Heart Rate 87 99 84 Respiratory 18 20 Rate Blood Pressure 137/64 H 120/78 133/65 H O2 Saturation 99 98 08/29/17 08/29/17 08/29/17 16:26 18:28 18:37 Temperature 37.1 C Heart Rate 87 94 82 Respiratory 16 18 Rate Blood Pressure 135/67 H 144/77 H 119/61 O2 Saturation 96 95 08/29/17 19:32 Temperature Heart Rate 94 Respiratory 17 Rate Blood Pressure 127/74 O2 Saturation 95 Oxygen O2 Source Room air - Labs Labs: Laboratory Tests 08/29/17 08/29/17 08/29/17 11:40 11:40 14:50 WBC 6.5 RBC 2.51 L Hgb 7.9 L Hct 24.1 L MCV 96.3 H MCH 31.6 H MCHC 32.8 RDW 17.1 H Plt Count 295 MPV 7.0 L Neut # 5.5 Lymph # 0.6 L [place] # 0.4 Eos # 0.0 Baso # 0.0 Absolute Nucleated RBC 0.00 Nucleated RBC % 0.0 Sodium 136 Potassium 3.3 L Chloride 107 Carbon Dioxide 19 L Anion Gap 10.0 BUN 10 Creatinine 1.7 H Estimated GFR (MDRD) 40 L Glucose 140 H Calcium 8.1 L Total Bilirubin 0.5 AST 36 ALT 12 Alkaline Phosphatase 68 Total Protein 5.9 L Albumin 2.7 L Globulin 3.2 Albumin/Globulin Ratio 0.8 L Amylase 74 Lipase 83 H Urine Color YELLOW Urine Clarity CLEAR Urine pH 6.0 Ur Specific [place] >=1.030 H Urine Protein NEGATIVE Urine Glucose (UA) NEGATIVE Urine Ketones NEGATIVE Urine Occult Blood NEGATIVE Urine Nitrite NEGATIVE Urine Bilirubin NEGATIVE Urine Urobilinogen 0.2 (NORMAL) Ur Leukocyte Esterase NEGATIVE Ur Microscopic Review NOT INDICATED Urine Culture Comments NOT INDICATED PD MEDICAL DECISION MAKING - ED course ED course: just had CT 48 hr ago for dame issue so did not repeat d/w [facility] surgeon Dr Spence - Dr Spence who did the surgery explains that pts enterostomy has broken down and now he has small bowel contents leaking into his retroperitoneum and out the skin - CT at least shows a retroperitoneal collection near the psuedocyst small bowel anasmatosis with dense material in wound which could be from the small bowel pt not able to proceed with outpt work up - he is getting worse,now with sig abd pain and modestly elevated lipase - consider admit Dr Spence advises that this problems exceeds the capabilities of [facility] - pt may need a distal pancreatectomy, may need a percut drain by IR, may need a pancreatic shunt, or may just need to be made NPO and kept on TPN for nutrition, but given his complicated problem, his underlying sig medical problems (cancer on chemo, severe anemia, renal insuff, etc) is not a candidate for a small critical access hospital - also his admit will almost certainly be > 96 hr which is the limit for critical access facilities so will try and transfer Prov Harshad - full [place] - full [facility] - case too complicated [facility] / - may accept sent notes and images at 1530 case being reviewed - pending surgeons to review and determine if can accept pt started maintenance IVF gave PM bactrim else NPO d/w Dr Denilson Alcaraz again at 1850 and he and surgicla service and rads are still evaluating trying to determine if underlying source is pancreas or small bowel - but either way pt exceeds [facility] capacity and so he will accept pt to now waiting for bed availability at [facility] turned over to [facility] Dr Rosenberg pending [facility] bed availability and transfer Departure - Departure Disposition: 02 Transfer Acute Care Hosp Clinical Impression: Retroperitoneal abscess Pancreatitis Qualifiers: Chronicity: acute Pancreatitis type: unspecified pancreatitis type Acute pancreatitis complication: unspecified Qualified Code(s): K85.90 - Acute pancreatitis without necrosis or infection, unspecified Condition: Fair
[2017-08-29 15:08] LABS: BILIRUBIN,URINE NEGATIVE (NEGATIVE); GLUCOSE, URINE (UA) NEGATIVE (NEGATIVE); KETONES,URINE (UA) NEGATIVE (NEGATIVE); LEUKOCYTE ESTERASE, URINE NEGATIVE (NEGATIVE); NITRITE,URINE NEGATIVE (NEGATIVE); OCCULT BLOOD,URINE NEGATIVE (NEGATIVE); PROTEIN,URINE NEGATIVE (NEGATIVE); UROBILINOGEN,URINE 0.2 (NORMAL) E.U./dL (NORMAL)
[2017-08-29 15:09] LABS: CLARITY,URINE CLEAR (CLEAR)
[2017-08-29] MEDS ORDERED: D5.45NS W/20 MEQ KCL 1,000 ML IV STA (18:39)
[2017-08-29] MEDS ORDERED: SULFAMETH/TRIMETH DS 800/160 MG TABLET PO STA (18:57)
[2017-08-30] MEDS ORDERED: DEXTROSE 5%-0.45% NACL 1,000 ML IV ONE (03:10)
[2017-08-30] MEDS ORDERED: SULFAMETH/TRIMETH DS 800/160 MG TABLET PO STA (07:13)
[2017-08-30 07:58] LABS: BASOPHILS % (AUTO) 0.3 %; EOSINOPHILS # (AUTO) 0.1 10^3/uL (0.0-0.7); EOSINOPHILS % (AUTO) 1.1 %; HGB - HEMOGLOBIN 7.7 g/dL (14.0-18.0); LYMPHOCYTES # (AUTO) 0.6 10^3/uL (1.5-3.5); LYMPHOCYTES % (AUTO) 10.5 %; MEAN CORPUSCULAR HEMOGLOBIN 31.4 pg (27.0-31.0); MEAN CORPUSCULAR HGB CONC 33.1 g/dL (32.0-36.0); MEAN PLATELET VOLUME 6.7 fL (7.4-11.4); MONOCYTES # (AUTO) 0.6 10^3/uL (0.0-1.0); MONOCYTES % (AUTO) 10.6 %; NEUTROPHILS # (AUTO) 4.4 10^3/uL (1.5-6.6); NEUTROPHILS % (AUTO) 77.5 %; PLT - PLATELET COUNT 282 10^3/uL (130-450); RED BLOOD COUNT 2.44 10^6/uL (4.70-6.10); RED CELL DISTRIBUTION WIDTH 16.8 % (12.0-15.0); WHITE BLOOD COUNT 5.7 x10^3/uL (4.8-10.8)
[2017-08-30 08:21] LABS: ALBUMIN 2.3 g/dL (3.2-5.5); ALBUMIN/GLOBULIN RATIO 0.7 (1.0-2.2); BILIRUBIN,TOTAL 0.3 mg/dL (0.2-1.0); CREATININE 1.4 mg/dL (0.6-1.2); TOTAL PROTEIN 5.4 g/dL (6.7-8.2)
[2017-08-30 15:18] VITALS: BP 124/78
== END 2017-08-30 15:18 | disposition short-term general hospital (02) ==
LOC: ED 11:16
DX: K68.19 Other retroperitoneal abscess (principal); K85.90 Acute pancreatitis without necrosis or infection, unspecified; K94.13 Enterostomy malfunction; C92.10 Chronic myeloid leukemia, BCR/ABL-positive, not having achieved remission; Z79.899 Other long term (current) drug therapy; D63.0 Anemia in neoplastic disease; D63.1 Anemia in chronic kidney disease; N18.3 Chronic kidney disease, stage 3 (moderate); Z87.19 Personal history of other diseases of the digestive system; Z86.718 Personal history of other venous thrombosis and embolism; K21.9 Gastro-esophageal reflux disease without esophagitis; I73.9 Peripheral vascular disease, unspecified; Z87.891 Personal history of nicotine dependence
CPT/HCPCS: 36415; 80053; 81003; 82150; 83690; 85025; 96361; 96374; 96376; 99284; A9270; 81001; 87086; 99285

== ENCOUNTER 2017-08-30 15:16 | Outpatient (CLI) | payer MEDICARE, OTHER | END 2017-08-30 15:17 | disposition short-term general hospital (02) | LOC: EMS 15:16 | PROVIDERS: ATTEND Surgery | DX: R10.9 Unspecified abdominal pain (principal) | CPT/HCPCS: A0170; A0425; A0426 ==

== ENCOUNTER 2017-09-20 13:15 | Outpatient (CLI) | payer MEDICARE, OTHER | END 2017-09-20 13:16 | disposition home or self-care (01) | LOC: LAB.R 13:15 | PROVIDERS: ATTEND Family Medicine | DX: R19.5 Other fecal abnormalities (principal) | CPT/HCPCS: 82270 ==

== ENCOUNTER 2017-09-21 11:56 | Outpatient (CLI) | payer MEDICARE, OTHER | END 2017-09-21 11:57 | disposition critical access hospital (66) | LOC: EMS 11:56 | PROVIDERS: ATTEND Surgery | DX: R50.9 Fever, unspecified (principal) | CPT/HCPCS: A0425; A0429 ==

== ENCOUNTER 2017-09-21 12:25 | Emergency (ER) | payer MEDICARE, OTHER ==
--- NOTE | 2017-09-21 12:43 | ED Physician Documentation ---
History of Present Illness - Stated complaint Stated Complaint: FEVER - Chief complaint Chief Complaint: Fever - History obtained from History obtained from: Patient - History of Present Illness Timing: Other (This is a 67-year-old gentleman with chronic myelogenous leukemia , chronic anemia, history of DVT with IVC filter and chronic kidney disease also peripheral vascular disease and recurrent pancreatitis. At the end of last month he had a flank abscess that was drained in the operating room and found to go into the retroperitoneum, this was felt to be a fistula to a prior pancreatic pseudocyst and he represented here on August 29 and was eventually sent to the [facility] where he had what sounds like an ERCP with pancreatic stent and an ostomy appliance placed over the open wound on his left flank. He has been home for about 11 days, he is off IV antibiotics since his discharge from the hospital. Without an increase in his flank pain he noted a temperature 100.7 today and was advised to come to the emergency department for evaluation. Of note he is scheduled for a CT this coming Tuesday by Dr. Spence. He has no increase in the wound drainage into the ostomy appliance.) Review of Systems Ten Systems: 10 systems reviewed and negative Constitutional: reports: Fever. denies: Chills Cardiac: denies: Chest pain / pressure, Palpitations Respiratory: denies: Dyspnea, Cough PD PAST MEDICAL HISTORY - Past Medical History Cardiovascular: Peripheral Vascular Disease, Deep vein thrombosis Respiratory: None Neuro: None Endocrine/Autoimmune: None, Other GI: GERD, Pancreatitis : Other HEENT: None Psych: None Musculoskeletal: None Derm: None - Past Surgical History Past Surgical History: Yes General: Colonoscopy Cardiovascular: Fempop bypass, Vascular surgery - Present Medications Home Medications: Ambulatory Orders Medication Instructions Recorded Confirmed Imatinib Mesylate [Gleevec] 400 mg PO DAILY 11/28/12 08/30/17 Multivitamin [Multivitamins] 1 each PO DAILY 11/28/12 08/30/17 Ondansetron [Zofran] 4 mg PO Q6H PRN 05/04/16 08/30/17 Omeprazole 20 mg PO BIDAC 06/01/16 08/30/17 Ferrous Gluconate 324 mg PO BID 08/22/16 08/30/17 Imatinib Mesylate [Gleevec] 200 mg PO DAILY 08/22/16 08/30/17 Ciprofloxacin HCl [Cipro] 500 mg PO BID #20 tablet 09/21/17 - Allergies Allergies/Adverse Reactions: Allergies Allergy/AdvReac Type Severity Reaction Status Date / Time No Known Drug Allergies Allergy Verified 09/21/17 12:32 - Social History Does the pt smoke?: Yes Smoking Status: Current every day smoker Does the pt drink ETOH?: Yes Does the pt have substance abuse?: No - Family History Family history: reports: Non contributory - Immunizations Immunizations are current?: Yes - POLST Patient has POLST: No POLST Status: [facility] PD ED PE NORMAL - Vitals Vital signs reviewed: Yes - General General: Alert and oriented X 3, No acute distress - HEENT HEENT: PERRL, EOMI - Neck Neck: Supple, no meningeal sign, No bony TTP - Cardiac Cardiac: RRR, No murmur - Respiratory Respiratory: No respiratory distress, Clear bilaterally - Abdomen Abdomen: Normal bowel sounds, Soft, Non tender - Back Back: Other (There is a 3-4 cm open wound over the left flank that is somewhat gaping and about a teaspoon of purulent material in the ostomy bag that is thin. No surrounding cellulitis.) - Derm Derm: Normal color, Warm and dry - Extremities Extremities: No edema, No calf tenderness / cord - Neuro Neuro: Alert and oriented X 3, Normal speech - Psych Psych: Normal mood, Normal affect Results - Vitals Vitals: Vital Signs - 24 hr 09/21/17 09/21/17 09/21/17 12:26 13:56 16:12 Temperature 37.3 C 36.9 C 37.1 C Heart Rate 106 H 94 91 Respiratory 18 16 14 Rate Blood Pressure 119/71 109/57 L 111/74 O2 Saturation 98 99 97 09/21/17 17:10 Temperature Heart Rate 88 Respiratory 18 Rate Blood Pressure 107/58 L O2 Saturation 98 Oxygen O2 Source Room air - Labs Labs: Laboratory Tests 09/21/17 09/21/17 09/21/17 12:45 12:45 12:45 WBC 11.6 H RBC 2.30 L Hgb 7.2 L Hct 21.7 L MCV 94.4 H MCH 31.2 H MCHC 33.0 RDW 17.3 H Plt Count 374 MPV 6.8 L Neut # 9.4 H Lymph # 1.2 L [place] # 1.1 H Eos # 0.0 Baso # 0.0 Absolute Nucleated RBC 0.00 Nucleated RBC % 0.0 Sodium 137 Potassium 4.0 Chloride 105 Carbon Dioxide 23 Anion Gap 9.0 BUN 18 Creatinine 1.5 H Estimated GFR (MDRD) 47 L Glucose 125 H Lactic Acid 1.8 Calcium 8.5 Total Bilirubin 0.6 AST 25 ALT 22 Alkaline Phosphatase 84 Total Protein 6.3 L Albumin 2.7 L Globulin 3.6 Albumin/Globulin Ratio 0.8 L Lipase 52 H - Rads (name of study) CT A/P with PO/IV contrast Radiology: EMP read contemporaneously (Open left flank wound with oral contrast from the fistula to small bowel in the pancreatic tail region and there is air in the biliary tree.) PD MEDICAL DECISION MAKING - ED course ED course: 67-year-old gentleman with 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 CT done as shown with oral contrast leak into the retroperitoneum. And an elevated white blood cell count and chronic anemia. Case reviewed by phone with Dr. Spence his surgeon here who recommended transfer back to [facility]. They were paged for consultation at 2:48 PM. I spoke with Dr. Ramirez the [facility] who reviewed his records and CT and felt he did not need to be transferred recommended oral antibiotics and they will move up his appointment. 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 Follow-up with [facility], they told me they will call you to expedite the appointment. If you do not hear from them in the next few days, call him in [phone].
[2017-09-21 13:05] LABS: BASOPHILS % (AUTO) 0.1 %; EOSINOPHILS % (AUTO) 0.1 %; HGB - HEMOGLOBIN 7.2 g/dL (14.0-18.0); LYMPHOCYTES # (AUTO) 1.2 10^3/uL (1.5-3.5); LYMPHOCYTES % (AUTO) 10.2 %; MEAN CORPUSCULAR HEMOGLOBIN 31.2 pg (27.0-31.0); MEAN CORPUSCULAR VOLUME 94.4 fL (80.0-94.0); MEAN PLATELET VOLUME 6.8 fL (7.4-11.4); MONOCYTES # (AUTO) 1.1 10^3/uL (0.0-1.0); MONOCYTES % (AUTO) 9.1 %; NEUTROPHILS # (AUTO) 9.4 10^3/uL (1.5-6.6); NEUTROPHILS % (AUTO) 80.5 %; PLT - PLATELET COUNT 374 10^3/uL (130-450); RED CELL DISTRIBUTION WIDTH 17.3 % (12.0-15.0); WHITE BLOOD COUNT 11.6 x10^3/uL (4.8-10.8)
[2017-09-21] MEDS ORDERED: IOPAMIDOL-300 50 ML VIAL ONE (13:05)
[2017-09-21] MEDS ORDERED: IOPAMIDOL-300 100 ML VIAL ONE (13:05)
[2017-09-21 13:09] LABS: ALBUMIN 2.7 g/dL (3.2-5.5); ALBUMIN/GLOBULIN RATIO 0.8 (1.0-2.2); BILIRUBIN,TOTAL 0.6 mg/dL (0.2-1.0); CALCIUM 8.5 mg/dL (8.5-10.3); CREATININE 1.5 mg/dL (0.6-1.2); TOTAL PROTEIN 6.3 g/dL (6.7-8.2)
[2017-09-21] MEDS ORDERED: IOPAMIDOL-300 50 ML VIAL PO ONE (14:43)
[2017-09-21] MEDS ORDERED: IOPAMIDOL-300 100 ML VIAL IVP ONE (14:43)
--- NOTE | 2017-09-21 15:18 | CT Report ---
EXAM: CT ABDOMEN AND PELVIS EXAM DATE: 09/21/2017 02:43 PM. CLINICAL HISTORY: IV and PO, abd pain, retroperitoneal abscess. History of pancreatic cyst enterosto my COMPARISONS: None. TECHNIQUE: Routine helical CT imaging was performed through the abdomen and pelvis. IV contrast: ISOV UE 300 100mL. Enteric contrast: No. Reconstructions: Coronal and sagittal. In accordance with CT protocol optimization, one or more of the following dose reduction techniques w ere utilized for this exam: automated exposure control, adjustment of mA and/or KV based on patient s ize, or use of iterative reconstructive technique. FINDINGS: Lung Bases: Small left effusion Liver: Normal. No masses. Gallbladder/Bile Ducts: Air in the gallbladder Air in the biliary system Spleen: Normal. Pancreas: Mild pancreatic ductal dilatation in the body 3.6 mm. Clips adjacent to the left pancreatic tail, air in the pancreatic tail region Adrenal Glands: Normal. Kidneys: Left kidney is pushed anteriorly by the left flank abscess No masses or hydronephrosis. Peritoneal Cavity/Bowel: Open left flank wound is seen with fluid and contrast. There appears to be a fistula from small bowel loop in the left upper quadrant adjacent to the spleen. The fistula is seen on series 4 image 32,33. . This involves the left psoas muscle. Pelvic Organs: the bladder and visualized pelvic organs are within normal limits. Bilateral fat-containing inguinal hernias Vasculature: IVC filter. Femoral-femoral bypass graft Bones: DJD spine. Other: None. IMPRESSION: 1 . Open left flank wound with oral contrast from a fistula to small bowel in the pancrea tic tail region. 2. Air in the biliary tree, gallbladder RADIA The above findings were discussed with Dr. Frost by Dr. Josselin Foreman at 15:17 hrs on 09/21/17. Referring Provider Line: [phone] SITE ID: [id number]
[2017-09-21] MEDS ORDERED: CIPROFLOXACIN 250 MG TABLET PO STA (17:39)
[2017-09-21 17:54] VITALS: BP 112/66
== END 2017-09-21 18:14 | disposition home or self-care (01) ==
LOC: EDUNIT# → ED 12:25
DX: K63.2 Fistula of intestine (principal); D64.9 Anemia, unspecified; C92.10 Chronic myeloid leukemia, BCR/ABL-positive, not having achieved remission; I73.9 Peripheral vascular disease, unspecified; N18.9 Chronic kidney disease, unspecified; F17.200 Nicotine dependence, unspecified, uncomplicated; Z86.718 Personal history of other venous thrombosis and embolism; Z96.89 Presence of other specified functional implants
CPT/HCPCS: 36415; 74177; 80053; 83605; 83690; 85025; 87040; 99284; A9270; Q9967

== ENCOUNTER 2017-10-04 13:42 | Outpatient (CLI) | payer MEDICARE, OTHER | END 2017-10-04 13:43 | disposition short-term general hospital (02) | LOC: EMS 13:42 | PROVIDERS: ATTEND Surgery | DX: R58 Hemorrhage, not elsewhere classified (principal); Z96.89 Presence of other specified functional implants | CPT/HCPCS: A0170; A0425; A0427 ==

== ENCOUNTER 2017-11-02 14:14 | Emergency (ER) | payer MEDICARE, OTHER ==
--- NOTE | 2017-11-02 15:32 | ED Physician Documentation ---
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 His home health nurse felt today that it looked infected and he has had increased pain from the site over which he keeps his ostomy. There are no fevers.) Review of Systems Constitutional: denies: Fever, Chills Cardiac: denies: Chest pain / pressure, Palpitations Respiratory: denies: Dyspnea, Cough PD PAST MEDICAL HISTORY - Past Medical History Cardiovascular: Peripheral Vascular Disease, Deep vein thrombosis Respiratory: None Neuro: None Endocrine/Autoimmune: None, Other GI: GERD, Pancreatitis : Other HEENT: None Psych: None Musculoskeletal: None Derm: None - Past Surgical History Past Surgical History: Yes General: Colonoscopy Cardiovascular: Fempop bypass, Vascular surgery - Present Medications Home Medications: Ambulatory Orders Medication Instructions Recorded Confirmed Imatinib Mesylate [Gleevec] 400 mg PO DAILY 11/28/12 11/02/17 Multivitamin [Multivitamins] 1 each PO DAILY 11/28/12 11/02/17 Ondansetron [Zofran] 4 mg PO Q6H PRN 05/04/16 11/02/17 Omeprazole 20 mg PO BIDAC 06/01/16 11/02/17 Ferrous Gluconate 324 mg PO BID 08/22/16 11/02/17 Imatinib Mesylate [Gleevec] 200 mg PO DAILY 08/22/16 11/02/17 Apixaban [Eliquis] 1 tab PO BID 10/25/17 11/02/17 Octreotide Acetate [Sandostatin] 1 ml INJ BID 10/25/17 11/02/17 Ciprofloxacin HCl [Cipro] 500 mg PO BID #20 tablet 11/02/17 - Allergies Allergies/Adverse Reactions: Allergies Allergy/AdvReac Type Severity Reaction Status Date / Time No Known Drug Allergies Allergy Verified 09/21/17 12:32 - Social History Does the pt smoke?: Yes Smoking Status: Current every day smoker Does the pt drink ETOH?: Yes Does the pt have substance abuse?: No - Immunizations Immunizations are current?: Yes - POLST Patient has POLST: No POLST Status: DPA for Health Care PD ED PE NORMAL - Vitals Vital signs reviewed: Yes - General General: Alert and oriented X 3, No acute distress - Abdomen Abdomen: Normal bowel sounds, Soft, Non tender - Derm Derm: Other (There is a chronically draining wound over the left flank which does look a little red, the material was cultured during examination.) - Neuro Neuro: Alert and oriented X 3, Normal speech Results - Vitals Vitals: Vital Signs - 24 hr 11/02/17 14:29 Temperature 36.8 C Heart Rate 93 Respiratory 14 Rate Blood Pressure 113/66 O2 Saturation 100 Oxygen O2 Source Room air - Labs Labs: Laboratory Tests 11/02/17 11/02/17 16:02 16:02 WBC 8.4 RBC 2.41 L Hgb 7.3 L Hct 22.2 L MCV 92.1 MCH 30.3 MCHC 32.9 RDW 16.3 H Plt Count 337 MPV 7.0 L Neut # 6.4 Lymph # 1.2 L Rooks # 0.7 Eos # 0.0 Baso # 0.0 Absolute Nucleated RBC 0.00 Nucleated RBC % 0.0 Sodium 137 Potassium 4.1 Chloride 106 Carbon Dioxide 21 Anion Gap 10.0 BUN 23 H Creatinine 1.8 H Estimated GFR (MDRD) 38 L Glucose 127 H Calcium 8.6 Total Bilirubin 0.4 AST 24 ALT 13 Alkaline Phosphatase 124 H Total Protein 7.1 Albumin 3.1 L Globulin 4.0 Albumin/Globulin Ratio 0.8 L Lipase 36 PD MEDICAL DECISION MAKING - ED course ED course: This is a 67-year-old gentleman with a 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 He does not have a fever or white count. Previous cultures were reviewed and Cipro seems like a good choice. He is more anemic, he was scheduled for Procrit tomorrow and this is administered here. However I notified by the pharmacy in the [facility] clinic nurse that Procrit needs to be done as an outpatient and this is deferred until he goes to the [facility] clinic in a couple of days. 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 If antibiotic change is necessary we will call you. Return if worse in the meantime, especially if you develop increased pain, fevers, cannot keep down the medication. Otherwise follow-up with your physician in approximately 2-3 days. Follow-up with your home health care/wound care nurse Tuesday. Return if worsening.
[2017-11-02 16:11] LABS: BASOPHILS % (AUTO) 0.2 %; EOSINOPHILS % (AUTO) 0.5 %; HGB - HEMOGLOBIN 7.3 g/dL (14.0-18.0); LYMPHOCYTES # (AUTO) 1.2 10^3/uL (1.5-3.5); LYMPHOCYTES % (AUTO) 14.8 %; MEAN CORPUSCULAR HEMOGLOBIN 30.3 pg (27.0-31.0); MEAN CORPUSCULAR HGB CONC 32.9 g/dL (32.0-36.0); MEAN CORPUSCULAR VOLUME 92.1 fL (80.0-94.0); MONOCYTES # (AUTO) 0.7 10^3/uL (0.0-1.0); MONOCYTES % (AUTO) 8.1 %; NEUTROPHILS # (AUTO) 6.4 10^3/uL (1.5-6.6); NEUTROPHILS % (AUTO) 76.4 %; PLT - PLATELET COUNT 337 10^3/uL (130-450); RED BLOOD COUNT 2.41 10^6/uL (4.70-6.10); RED CELL DISTRIBUTION WIDTH 16.3 % (12.0-15.0); WHITE BLOOD COUNT 8.4 x10^3/uL (4.8-10.8)
[2017-11-02 16:20] LABS: ALBUMIN 3.1 g/dL (3.2-5.5); ALBUMIN/GLOBULIN RATIO 0.8 (1.0-2.2); BILIRUBIN,TOTAL 0.4 mg/dL (0.2-1.0); CALCIUM 8.6 mg/dL (8.5-10.3); CREATININE 1.8 mg/dL (0.6-1.2); TOTAL PROTEIN 7.1 g/dL (6.7-8.2)
[2017-11-02] MEDS ORDERED: CIPROFLOXACIN 250 MG TABLET PO STA (16:24)
[2017-11-02] MEDS ORDERED: EPOETIN SUBQ ONE (16:30)
[2017-11-02 16:59] VITALS: BP 114/86
== END 2017-11-02 16:57 | disposition home or self-care (01) ==
LOC: ED 14:14
DX: K86.89 Other specified diseases of pancreas (principal); N18.3 Chronic kidney disease, stage 3 (moderate); D63.1 Anemia in chronic kidney disease; L98.8 Other specified disorders of the skin and subcutaneous tissue; C25.9 Malignant neoplasm of pancreas, unspecified; F17.200 Nicotine dependence, unspecified, uncomplicated; Z93.8 Other artificial opening status; Z86.718 Personal history of other venous thrombosis and embolism; Z79.01 Long term (current) use of anticoagulants
CPT/HCPCS: 36415; 80053; 83690; 85025; 87070; 87077; 87181; 87205; 99283; A9270

== ENCOUNTER 2017-12-13 12:45 | Emergency (ER) | payer MEDICARE, OTHER ==
[2017-12-13 13:18] VITALS: BP 126/79
--- NOTE | 2017-12-13 13:47 | ED Physician Documentation ---
PD HPI SKIN - Stated complaint Stated Complaint: ABSCESS - Chief complaint Chief Complaint: Wound - History obtained from History obtained from: Patient - History of Present Illness Timing - onset: Today Timing - details: Abrupt onset (he has pancreatic fistula draining out left flank area for several months. Has seen surgical specialists and letting it just drain (surgeries risky and not certain to keep it from recurring per patient). He has home health help him change the drainage bag and today the area was noted to have lump of red tissue. Concern for abscess or infection and so referred to ER for evaluation.) Location: Back (left flank) Quality / character: Painful, Discolored (red locally) Associated symptoms: No: Fever, Myalgias, N/V/D Review of Systems Constitutional: denies: Fever, Chills, Myalgias GI: denies: Nausea, Vomiting Neurologic: denies: Generalized weakness PD PAST MEDICAL HISTORY - Past Medical History Past Medical History: Yes Cardiovascular: Peripheral Vascular Disease, Deep vein thrombosis Respiratory: None Endocrine/Autoimmune: None, Other GI: GERD, Pancreatitis : Other HEENT: None Psych: None Musculoskeletal: None Derm: None - Past Surgical History Past Surgical History: Yes General: Colonoscopy Cardiovascular: Fempop bypass, Vascular surgery - Present Medications Home Medications: Ambulatory Orders Medication Instructions Recorded Confirmed Imatinib Mesylate [Gleevec] 400 mg PO DAILY 11/28/12 11/29/17 Multivitamin [Multivitamins] 1 each PO DAILY 11/28/12 11/29/17 Ondansetron [Zofran] 4 mg PO Q6H PRN 05/04/16 11/29/17 Omeprazole 20 mg PO BIDAC 06/01/16 11/29/17 Ferrous Gluconate 324 mg PO BID 08/22/16 11/29/17 Imatinib Mesylate [Gleevec] 200 mg PO DAILY 08/22/16 11/29/17 Apixaban [Eliquis] 1 tab PO BID 10/25/17 11/29/17 Octreotide Acetate [Sandostatin] 1 ml INJ BID 10/25/17 11/29/17 HYDROcod/ACETAM 5/325 [[place] 5/325] 1 - 2 ea PO Q6H PRN #15 tablet 11/02/1703/11 Doxycycline Monohydrate 100 mg PO BID #14 tablet 12/13/17 Mupirocin 1 applic TP TID #15 oint...g. 12/13/17 - Allergies Allergies/Adverse Reactions: Allergies Allergy/AdvReac Type Severity Reaction Status Date / Time No Known Drug Allergies Allergy Verified 12/13/17 13:18 - Social History Does the pt smoke?: Yes Smoking Status: Current every day smoker Does the pt drink ETOH?: Yes Does the pt have substance abuse?: No - Immunizations Immunizations are current?: Yes - POLST Patient has POLST: No POLST Status: [facility] for Health Care PD ED PE NORMAL - Vitals Vital signs reviewed: Yes - General General: Alert and oriented X 3, No acute distress, Well developed/nourished - Cardiac Cardiac: RRR, No murmur - Respiratory Respiratory: Clear bilaterally - Abdomen Abdomen: Normal bowel sounds, Soft, Non tender, Non distended - Back Back: Other (left lower thoracic back with small drainage hole c/w fistula and yellowish fluid out that is clear. No purulence. the lower aspect of the hole with a small 5 mm raised reddened lump of tissue c/w granulation tissue. It is soft and some tender. No fluctuance and bedside U/S did not show any underlying fluid, just the fistula tract. scalpel tip philomena of the tissue after local anesth did not express any purulence, just slight bleeding. ) - Derm Derm: Normal color, Warm and dry - Neuro Neuro: Alert and oriented X 3, No motor deficit, Normal speech Results - Vitals Vitals: Vital Signs - 24 hr 12/13/17 13:15 Temperature 36.2 C L Heart Rate 87 Respiratory 18 Rate Blood Pressure 126/79 O2 Saturation 100 Oxygen O2 Source Room air PD MEDICAL DECISION MAKING - ED course Complexity details: considered differential (there is some local 1/2 cm raised granulation tissue, without abscess by bedside U/S. I did local anesth and nicked the area with #11 scalpel and no pus out. It is some red there and presume the granulation tissue is reacting to local irritation/infection.), d/w patient Departure - Departure Disposition: 01 Home, Self Care Clinical Impression: Wound with infection determined by examination Condition: Stable Record reviewed to determine appropriate education?: Yes Instructions: ED Staph Infec Abx Tx Only Follow-Up: Blanca Lowe ARNP [Primary Care Provider] - Prescriptions: Doxycycline Monohydrate 100 mg PO BID #14 tablet Mupirocin 1 applic TP TID #15 oint...g. Comments: There is no abscess at the site. There is some inflammation of the tissue was some overgrowth of it called granulation tissue. The fistula may be coming out in a side channel at that spot. There is some redness in the area and could also represent a mild infection at the skin. Use mupirocin topical antibiotic locally when changing the appliance. Also doxycycline orally twice daily for a week per chance of skin infection. Recheck if worsening problems. Discharge Date/Time: 12/13/17 14:37
[2017-12-13] MEDS ORDERED: DOXYCYCLINE 100 MG TABLET PO STA (14:14)
[2017-12-13] MEDS ORDERED: MUPIROCIN 2% OINT 1 GM TOP STA (14:14)
== END 2017-12-13 14:37 | disposition home or self-care (01) ==
LOC: ED 12:45
DX: T82.7XXA Infection and inflammatory reaction due to other cardiac and vascular devices, implants and grafts, initial encounter (principal); I73.9 Peripheral vascular disease, unspecified; Z86.718 Personal history of other venous thrombosis and embolism; K21.9 Gastro-esophageal reflux disease without esophagitis; F17.200 Nicotine dependence, unspecified, uncomplicated
CPT/HCPCS: 99283; A9270; 36415; 85027

== ENCOUNTER 2018-01-19 13:08 | Outpatient (CLI) | payer MEDICARE, OTHER ==
--- NOTE | 2018-01-19 13:38 | XRAY Report ---
Procedure Date: 01/19/2018 Accession Number: [id number] / [id number] Procedure: XR - Knee 4 View BILAT CPT Code: FULL RESULT: EXAM: Knee 4 View BILAT DATE: 01/19/2018 1:30 PM CLINICAL HISTORY: PAIN IN LEFT KNEE,PAIN IN RIGHT KNEE COMPARISON: None. TECHNIQUE: 4 views each. FINDINGS: RIGHT KNEE: Bones: Irregularity of the right patella, suggestive of an old, healed fracture. Joints: Mild osteoarthritis. No effusion. Soft Tissues: Normal. No soft tissue swelling. LEFT KNEE: Bones: Normal. No fractures or bone lesions. Joints: Normal. No effusion. No subluxations. Soft Tissues: Normal. No soft tissue swelling. IMPRESSION: Mild right osteoarthritis, and likely old, healed right patellar fracture. RADIA
== END 2018-01-19 13:09 | disposition home or self-care (01) ==
LOC: DI 13:08
PROVIDERS: ATTEND Nurse Practitioner Family
DX: M17.11 Unilateral primary osteoarthritis, right knee (principal); M25.562 Pain in left knee

== ENCOUNTER 2018-04-03 14:45 | Outpatient (CLI) | payer MEDICARE, OTHER | END 2018-04-03 14:46 | disposition home or self-care (01) | LOC: LAB.R 14:45 | PROVIDERS: ATTEND Nurse Practitioner Family | DX: H60.502 Unspecified acute noninfective otitis externa, left ear (principal); C92.Z1 Other myeloid leukemia, in remission | CPT/HCPCS: 87070 ==

== ENCOUNTER 2018-05-02 12:18 | Outpatient (CLI) | payer MEDICARE, OTHER ==
[2018-05-02] MEDS ORDERED: IOPAMIDOL-300 100 ML VIAL ONE (12:44)
== END 2018-05-02 12:19 | disposition home or self-care (01) ==
LOC: DI 12:18
PROVIDERS: ATTEND Nurse Practitioner Family
DX: Z53.9 Procedure and treatment not carried out, unspecified reason (principal)

== ENCOUNTER 2018-05-02 12:21 | Outpatient (CLI) | payer MEDICARE, OTHER ==
[2018-05-02 13:07] LABS: CREATININE 1.8 mg/dL (0.6-1.2)
== END 2018-05-02 12:22 | disposition home or self-care (01) ==
LOC: LAB.R 12:21
PROVIDERS: ATTEND Nurse Practitioner Family
DX: I26.99 Other pulmonary embolism without acute cor pulmonale (principal)
CPT/HCPCS: 82565

== ENCOUNTER 2018-05-15 08:48 | Outpatient (CLI) | payer MEDICARE, OTHER ==
--- NOTE | 2018-05-16 12:03 | Nuclear Medicine Report ---
Reason: PULMONARY EMBOLISM Procedure Date: 05/15/2018 Accession Number: [id number] / [id number] Procedure: NM - Lung Vent/Perf V/Q CPT Code: FULL RESULT: EXAM: VENTILATION/PERFUSION SCAN (V/Q SCAN) EXAM DATE: 05/15/2018 01:56 PM. CLINICAL HISTORY: History of pulmonary EMBOLISM. COMPARISON: None. TECHNIQUE: Patient was administered 41.4 mCi of technetium 99m DTPA aerosol by inhalation and 8 standard ventilation images of the lungs were obtained. Next, the patient was injected with 5.1 mCi of technetium 99m MAA intravenously and 8 standard perfusion images of the lungs were obtained. FINDINGS: Perfusion images demonstrate mildly inhomogeneous perfusion to the lungs bilaterally without convincing segmental deficit. Ventilatory images demonstrate corresponding radiotracer distribution without convincing mismatch. Comparison chest radiograph demonstrates no significant focal pulmonary opacity. IMPRESSION: 1. No ventilation/perfusion mismatches to indicate pulmonary emboli. Low probability for acute pulmonary embolism. RADIA
== END 2018-05-15 08:49 | disposition home or self-care (01) ==
LOC: DI 08:48
PROVIDERS: ATTEND Nurse Practitioner Family
DX: I26.99 Other pulmonary embolism without acute cor pulmonale (principal)
CPT/HCPCS: 78582

== ENCOUNTER 2018-05-16 11:39 | Outpatient (CLI) | payer MEDICARE, OTHER ==
--- NOTE | 2018-05-16 12:04 | XRAY Report ---
Reason: PULMONARY EMBOLISM Procedure Date: 05/16/2018 Accession Number: [id number] / [id number] Procedure: XR - Chest 2 View X-Ray CPT Code: 83223 FULL RESULT: EXAM: CHEST RADIOGRAPHY EXAM DATE: 05/16/2018 11:48 AM. CLINICAL HISTORY: PULMONARY EMBOLISM. COMPARISON: 07/30/2014. TECHNIQUE: 2 views. FINDINGS: Lungs/Pleura: No focal pulmonary opacity. No significant pleural effusion or evidence of pneumothorax. Mediastinum: Heart size is normal. Mildly tortuous aorta. Other: None. IMPRESSION: No acute cardiopulmonary abnormality. RADIA
== END 2018-05-16 11:40 | disposition home or self-care (01) ==
LOC: DI 11:39
PROVIDERS: ATTEND Nurse Practitioner Family
DX: I26.99 Other pulmonary embolism without acute cor pulmonale (principal)
CPT/HCPCS: 71046

== ENCOUNTER 2018-05-24 14:30 | Outpatient (CLI) | payer MEDICARE, OTHER | END 2018-05-24 14:31 | disposition critical access hospital (66) | LOC: EMS 14:30 | PROVIDERS: ATTEND Surgery | DX: N48.89 Other specified disorders of penis (principal) | CPT/HCPCS: A0425; A0429 ==

== ENCOUNTER 2018-05-24 15:00 | Emergency (ER) | payer MEDICARE, OTHER ==
--- NOTE | 2018-05-24 15:19 | ED Physician Documentation ---
PD HPI MALE - Stated complaint Stated Complaint: MALE - Chief complaint Chief Complaint: Abd Pain - History obtained from History obtained from: Patient, EMS - History of Present Illness Timing - onset: Today Timing - duration: Days (1) Timing - details: Abrupt onset Pain level max: 0 Pain level now: 0 Associated symptoms: Dysuria, Hematuria PD HPI MALE CONTRIB FACTORS: No: Sexually active, Not sexually active, Homosexual, Exposed to STD, Indwelling catheter Similar symptoms before: Has not had sx before Recently seen: Not recently seen - Additional information Additional information: Patient is a 68-year-old male who is on Eliquis for pulmonary embolism. He states that today he had slight burning with urination as well as hematuria. Has only occurred x1. No back pain. No trauma. No fevers. No vomiting. No abdominal pain. Review of Systems Constitutional: denies: Fever, Chills Respiratory: denies: Cough, Wheezing GI: denies: Abdominal Pain, Nausea, Vomiting, Diarrhea Skin: denies: Rash Musculoskeletal: denies: Neck pain, Back pain PD PAST MEDICAL HISTORY - Past Medical History Cardiovascular: Peripheral Vascular Disease, Deep vein thrombosis Respiratory: None Endocrine/Autoimmune: None, Other GI: GERD, Pancreatitis : Other HEENT: None Psych: None Musculoskeletal: None Derm: None - Past Surgical History Past Surgical History: Yes General: Colonoscopy Cardiovascular: Fempop bypass, Vascular surgery - Present Medications Home Medications: Ambulatory Orders Medication Instructions Recorded Confirmed Imatinib Mesylate [Gleevec] 400 mg PO DAILY PM 11/28/12 04/19/18 Multivitamin [Multivitamins] 1 each PO DAILY 11/28/12 03/14/18 Ondansetron [Zofran] 4 mg PO Q6H PRN 05/04/16 04/19/18 Omeprazole 20 mg PO BIDAC 06/01/16 03/14/18 Ferrous Gluconate 324 mg PO DAILY 08/22/16 03/14/18 Imatinib Mesylate [Gleevec] 200 mg PO DAILY PM 08/22/16 04/19/18 Apixaban [Eliquis] 1 tab PO BID 10/25/17 04/19/18 Octreotide Acetate [Sandostatin] 1 ml INJ TID 10/25/17 03/14/18 HYDROcod/ACETAM 5/325 [[place] 5/325] 1 - 2 ea PO Q6H PRN #15 tablet 11/02/17 03/14/18 Ciprofloxacin HCl [Cipro] 500 mg PO BID 04/19/18 04/19/18 Cephalexin [Keflex] 500 mg PO Q6H #28 capsule 05/24/18 - Allergies Allergies/Adverse Reactions: Allergies Allergy/AdvReac Type Severity Reaction Status Date / Time No Known Drug Allergies Allergy Verified 05/24/18 22:24 - Social History Does the pt smoke?: Yes Smoking Status: Current every day smoker Does the pt drink ETOH?: Yes Does the pt have substance abuse?: No - Immunizations Immunizations are current?: Yes - POLST Patient has POLST: No POLST Status: DPA for Health Care PD ED PE NORMAL - Vitals Vital signs reviewed: Yes - General General: Alert and oriented X 3, No acute distress - HEENT HEENT: Moist mucous membranes - Neck Neck: Supple, no meningeal sign - Cardiac Cardiac: RRR - Respiratory Respiratory: No respiratory distress, Clear bilaterally - Male Male : Other (normal external exam. no tears or lesions. no bleeding) - Derm Derm: Warm and dry - Extremities Extremities: No edema, No calf tenderness / cord - Neuro Neuro: Alert and oriented X 3 Results - Vitals Vitals: Vital Signs - 24 hr 05/24/18 05/24/18 15:05 18:08 Temperature 36.2 C L Heart Rate 88 78 Respiratory 15 17 Rate Blood Pressure 143/72 H 149/77 H O2 Saturation 99 99 Oxygen O2 Source Room air - Labs Labs: Laboratory Tests 05/24/18 16:30 Urine Color DARK YELLOW Urine Clarity CLOUDY Urine pH 5.5 Ur Specific [place] 1.020 Urine Protein NEGATIVE Urine Glucose (UA) NEGATIVE Urine Ketones NEGATIVE Urine Occult Blood LARGE H Urine Nitrite NEGATIVE Urine Bilirubin NEGATIVE Urine Urobilinogen 0.2 (NORMAL) Ur Leukocyte Esterase NEGATIVE Urine RBC TNTC H Urine WBC 0-3 Ur Squamous Epith Cells NONE SEEN Urine Bacteria Few Ur Microscopic Review INDICATED Urine Culture Comments NOT INDICATED PD MEDICAL DECISION MAKING - ED course Complexity details: reviewed results, re-evaluated patient, considered differential, d/w patient ED course: Patient is a 68-year-old male who presents to the emergency department with gross hematuria today. Does have bacteria in his urine and will treat for UTI and see if this resolves his symptoms. We will continue on the Eliquis at this time and see if the hematuria clears as the infection clears. No back pain. No abdominal pain. Well-appearing, nontoxic. Patient counseled regarding signs and symptoms for which I believe and urgent re-evaluation would be necessary. Patient with good understanding of and agreement to plan and is comfortable goi ng home at this time This document was made in part using voice recognition software. While efforts are made to proofread this document, sound alike and grammatical errors may occur. Departure - Departure Disposition: 01 Home, Self Care Clinical Impression: Hematuria Qualifiers: Hematuria type: gross Qualified Code(s): R31.0 - Gross hematuria UTI (urinary tract infection) Qualifiers: Urinary tract infection type: acute cystitis Hematuria presence: with hematuria Qualified Code(s): N30.01 - Acute cystitis with hematuria Condition: Good Instructions: ED UTI Cystitis Female Follow-Up: Blanca Lowe ARNP [Primary Care Provider] - Within 1 week Prescriptions: Cephalexin [Keflex] 500 mg PO Q6H #28 capsule Comments: Return if you worsen. This should clear with the antibiotics. Discharge Date/Time: 05/24/18 18:32
[2018-05-24 18:01] LABS: BILIRUBIN,URINE NEGATIVE (NEGATIVE); GLUCOSE, URINE (UA) NEGATIVE (NEGATIVE); KETONES,URINE (UA) NEGATIVE (NEGATIVE); LEUKOCYTE ESTERASE, URINE NEGATIVE (NEGATIVE); NITRITE,URINE NEGATIVE (NEGATIVE); OCCULT BLOOD,URINE LARGE (NEGATIVE); PH,URINE 5.5 PH (5.0-7.5); PROTEIN,URINE NEGATIVE (NEGATIVE); UROBILINOGEN,URINE 0.2 (NORMAL) E.U./dL (NORMAL)
[2018-05-24 18:08] VITALS: BP 149/77
[2018-05-24 18:09] LABS: CLARITY,URINE CLOUDY (CLEAR)
[2018-05-24 18:10] LABS: BACTERIA,URINE Few /HPF (None Seen); RBC,URINE TNTC /HPF (0-5); SQUAMOUS EPITHELIAL CELL,UR NONE SEEN (<= Few)
[2018-05-24] MEDS ORDERED: cephALEXin 250 MG CAPSULE PO STA (18:17)
== END 2018-05-24 18:32 | disposition home or self-care (01) ==
LOC: EDBD → EDUNIT# → ED 15:00
DX: N30.01 Acute cystitis with hematuria (principal); Z86.711 Personal history of pulmonary embolism; Z79.01 Long term (current) use of anticoagulants; Z87.891 Personal history of nicotine dependence
CPT/HCPCS: 81001; 81003; 87086; 99283

== ENCOUNTER 2018-05-24 21:43 | Outpatient (CLI) | payer MEDICARE, OTHER | END 2018-05-24 21:44 | disposition critical access hospital (66) | LOC: EMS 21:43 | PROVIDERS: ATTEND Surgery | DX: R31.9 Hematuria, unspecified (principal) | CPT/HCPCS: A0425; A0429 ==

== ENCOUNTER 2018-05-24 22:15 | Emergency (ER) | payer MEDICARE, OTHER ==
--- NOTE | 2018-05-24 22:01 | ED Physician Documentation ---
PD HPI MALE - Stated complaint Stated Complaint: MALE - History obtained from History obtained from: Patient - History of Present Illness Timing - onset: Today Timing - details: Abrupt onset Pain level max: 0 Pain level now: 0 Associated symptoms: Hematuria. No: Dysuria, Urinary frequency, Unable to urinate Recently seen: Emergency Dept (T+R few hours ago for same, returns due to recurrence of hematuria) - Additional information Additional information: Patient presents via ambulance for hematuria. He was treated and released from the emergency department earlier this afternoon for same. He was prescribed an antibiotic, which patient states he has failed. He presents at this time due to a recurrence of hematuria, although he says it does not seem worse than earlier today. He is on Eliquis for history of pulmonary embolism. Review of Systems Constitutional: denies: Fever, Chills, Fatigue, Sweats GI: reports: Reviewed and negative : reports: Hematuria. denies: Dysuria, Frequency, Unable to Void PD PAST MEDICAL HISTORY - Past Medical History Past Medical History: Yes - Present Medications Home Medications: Ambulatory Orders Medication Instructions Recorded Confirmed Imatinib Mesylate [Gleevec] 400 mg PO DAILY PM 11/28/12 04/19/18 Multivitamin [Multivitamins] 1 each PO DAILY 11/28/12 03/14/18 Ondansetron [Zofran] 4 mg PO Q6H PRN 05/04/16 04/19/18 Omeprazole 20 mg PO BIDAC 06/01/16 03/14/18 Ferrous Gluconate 324 mg PO DAILY 08/22/16 03/14/18 Imatinib Mesylate [Gleevec] 200 mg PO DAILY PM 08/22/16 04/19/18 Apixaban [Eliquis] 1 tab PO BID 10/25/17 04/19/18 Octreotide Acetate [Sandostatin] 1 ml INJ TID 10/25/17 03/14/18 HYDROcod/ACETAM 5/325 [[place] 5/325] 1 - 2 ea PO Q6H PRN #15 tablet 11/02/17 03/14/18 Ciprofloxacin HCl [Cipro] 500 mg PO BID 04/19/18 04/19/18 Cephalexin [Keflex] 500 mg PO Q6H #28 capsule 05/24/18 - Allergies Allergies/Adverse Reactions: Allergies Allergy/AdvReac Type Severity Reaction Status Date / Time No Known Drug Allergies Allergy Verified 05/24/18 22:24 PD ED PE NORMAL - Vitals Vital signs reviewed: Yes - General General: Alert and oriented X 3, No acute distress, Well developed/nourished - Cardiac Cardiac: RRR, No murmur - Respiratory Respiratory: No respiratory distress, Clear bilaterally - Abdomen Abdomen: Soft, Non tender - Back Back: No CVA TTP - Derm Derm: Normal color Results - Vitals Vitals: Vital Signs - 24 hr 05/24/18 05/24/18 05/24/18 22:15 22:47 23:55 Temperature 36.7 C 36.5 C Heart Rate 91 83 78 Respiratory 18 16 18 Rate Blood Pressure 156/89 H 136/70 H 126/69 O2 Saturation 99 98 100 Oxygen O2 Source Room air - Labs Labs: Laboratory Tests 05/24/18 05/24/18 22:40 22:40 WBC 4.9 RBC 3.10 L Hgb 9.5 L Hct 29.3 L MCV 94.5 H MCH 30.5 MCHC 32.3 RDW 16.7 H Plt Count 302 MPV 7.1 L Neut # (Auto) 3.4 Lymph # (Auto) 0.7 L [place] # (Auto) 0.5 Eos # (Auto) 0.3 Baso # (Auto) 0.0 Absolute Nucleated RBC 0.01 Nucleated RBC % 0.1 Sodium 138 Potassium 3.5 Chloride 108 Carbon Dioxide 20 L Anion Gap 10.0 BUN 13 Creatinine 1.6 H Estimated GFR (MDRD) 43 L Glucose 142 H Calcium 8.1 L PD MEDICAL DECISION MAKING - ED course Complexity details: reviewed results, re-evaluated patient, considered differential, d/w patient ED course: patient remained asymptomatic to an each day. Mild anemia and elevated kidney tests are comparable to previous results. He did not have any more episodes of hematuria during ED stay. I told him to expect more episodes of blood in his urine, but to return the emergency department if he feels it is worsening, or if he develops other symptoms such as difficulty breathing, lightheadedness, pain, fever. Patient is comfortable with discharge home. Departure - Departure Disposition: Home, Self Care Clinical Impression: Hematuria Condition: Good Instructions: ED Hematuria Follow-Up: Blanca Lowe ARNP [Primary Care Provider] - Discharge Date/Time: 05/25/18 00:10
[2018-05-24 22:50] LABS: BASOPHILS % (AUTO) 0.3 %; EOSINOPHILS # (AUTO) 0.3 10^3/uL (0.0-0.7); EOSINOPHILS % (AUTO) 5.5 %; HGB - HEMOGLOBIN 9.5 g/dL (14.0-18.0); LYMPHOCYTES # (AUTO) 0.7 10^3/uL (1.5-3.5); LYMPHOCYTES % (AUTO) 14.1 %; MEAN CORPUSCULAR HEMOGLOBIN 30.5 pg (27.0-31.0); MEAN CORPUSCULAR HGB CONC 32.3 g/dL (32.0-36.0); MEAN CORPUSCULAR VOLUME 94.5 fL (80.0-94.0); MEAN PLATELET VOLUME 7.1 fL (7.4-11.4); MONOCYTES # (AUTO) 0.5 10^3/uL (0.0-1.0); MONOCYTES % (AUTO) 10.6 %; NEUTROPHILS # (AUTO) 3.4 10^3/uL (1.5-6.6); NEUTROPHILS % (AUTO) 69.5 %; PLT - PLATELET COUNT 302 10^3/uL (130-450); RED CELL DISTRIBUTION WIDTH 16.7 % (12.0-15.0); WHITE BLOOD COUNT 4.9 x10^3/uL (4.8-10.8)
[2018-05-24 22:57] LABS: CALCIUM 8.1 mg/dL (8.5-10.3); CREATININE 1.6 mg/dL (0.6-1.2)
[2018-05-24 23:57] VITALS: BP 126/69
== END 2018-05-25 00:10 | disposition home or self-care (01) ==
LOC: EDUNIT# → ED 22:15
DX: N30.01 Acute cystitis with hematuria (principal); D64.9 Anemia, unspecified; R94.4 Abnormal results of kidney function studies; Z86.711 Personal history of pulmonary embolism; Z79.01 Long term (current) use of anticoagulants; Z87.891 Personal history of nicotine dependence
CPT/HCPCS: 36415; 80048; 81001; 85025; 99283; A9270

== ENCOUNTER 2018-08-10 08:45 | Outpatient (CLI) | payer MEDICARE, OTHER ==
[2018-08-10] MEDS ORDERED: GADOBUTROL 10 MMOL/10 ML VIAL ONE (08:53)
[2018-08-10] MEDS ORDERED: GADOBUTROL 10 MMOL/10 ML VIAL IVP ONE (10:43)
--- NOTE | 2018-08-11 10:16 | MRI Report ---
Reason: CHRONIC PANCREATITIS, FISTULA Procedure Date: 08/10/2018 Accession Number: [id number] / [id number] Procedure: MRI - Abdomen W/WO CPT Code: FULL RESULT: EXAM: MR ABDOMEN WITH AND WITHOUT CONTRAST (MR PANCREAS AND MRCP) EXAM DATE: 08/10/2018 10:38 AM. CLINICAL HISTORY: Chronic pancreatitis. Pancreatic fistula. COMPARISON: Abdomen/pelvis w/contrast 09/21/2017 2:32 PM. TECHNIQUE: Multiplanar breath-hold T1, T2, and DWI sequences obtained through the pancreas and abdomen on an MR scanner. Dedicated 2D and 3D MRCP sequences obtained through the biliary and pancreatic ducts. Images obtained before and after administration of 10 mL Gadavist intravenous contrast. Multiphase postcontrast sequences obtained through the pancreas. Image quality is degraded by respiratory motion artifact. FINDINGS: Lung Bases: Small left pleural effusion has improved compared with the prior study. Heart appears mildly enlarged. Liver: The liver demonstrates a slightly prominent right hepatic lobe which may be due to variant Oli lobe anatomy and overall small left hepatic lobe size. The liver measures 19.5 cm in length. There is paradoxical increase in liver signal on T1 [id number] imaging. A 1.2 cm hyperenhancing focus in segment 5/6 without washout is seen, unchanged. No significant hyperintense T2 signal is seen in association. Bile ducts: There is no intrahepatic or extrahepatic biliary dilatation. The common bile duct measures 2-3 mm. Gallbladder: Partly contracted gallbladder is seen. No gallstones or surrounding inflammatory changes. Pancreas: There is mild ectasia of the pancreatic duct in the region of the distal tail measuring up to 6 mm. The pancreatic duct appears decompressed and normal caliber in the proximal pancreatic tail, body, and head region. As before, there is linear irregular enhancement tracking from the tip of the pancreatic tail and adjacent small bowel loop along the superior perisplenic space to the posterior costophrenic sulcus and pleura, consistent with fistulous communication. There is some mild airspace disease and enhancement of the pleura in this area (image ). No discrete or dominant abscess collection is seen. Spleen: The spleen appears normal. Kidneys and Adrenals: Some low signal change and scarring is seen in the upper pole left kidney adjacent to fistula tract. The kidneys are otherwise intact. There are no cysts in the kidneys. The adrenals appear normal. Bowel: Visualized bowel loops demonstrate diverticular disease in the left hemicolon, otherwise unremarkable. Some mild edema is seen in the left upper quadrant perisplenic space. Retroperitoneum: The retroperitoneal structures appear normal with no mass or lymphadenopathy. IMPRESSION: 1. Fistulous track again seen extending from the region of the distal pancreatic tail and adjacent small bowel loops to the pleural space along the left posterior costophrenic sulcus. No discrete abscess collection is seen. 2. Stable changes related to chronic pancreatitis involving the tail of the pancreas, including mild upstream dilation of the duct. No peripancreatic fluid collections are seen. 3. Small 1.2 cm hyperenhancing nodule without washout in the right hepatic lobe, nonspecific but possibly a small atypical hemangioma versus vascular shunting. RADIA
[2018-08-22] MEDS ORDERED: IOVERSOL 320 100 ML VIAL IVP ONE ×2 (13:26→14:55)
== END 2018-08-10 23:59 ==
LOC: DI 08:45
PROVIDERS: ATTEND Internal Medicine Gastroenterology
DX: K86.1 Other chronic pancreatitis (principal); K86.89 Other specified diseases of pancreas; L98.8 Other specified disorders of the skin and subcutaneous tissue; R16.0 Hepatomegaly, not elsewhere classified
CPT/HCPCS: 74183; A9585; 74170

== ENCOUNTER 2018-08-17 12:23 | Outpatient (CLI) | payer MEDICARE, OTHER | END 2018-08-17 12:24 | disposition home or self-care (01) | LOC: LAB 12:23 | PROVIDERS: ATTEND Internal Medicine Gastroenterology | DX: K86.1 Other chronic pancreatitis (principal); D50.9 Iron deficiency anemia, unspecified | CPT/HCPCS: 36415; 82150 ==

== ENCOUNTER 2018-08-22 15:00 | Outpatient (CLI) | payer MEDICARE, OTHER | END 2018-08-22 23:59 | LOC: DI 15:00 | PROVIDERS: ATTEND Internal Medicine Gastroenterology | DX: Z53.9 Procedure and treatment not carried out, unspecified reason (principal) ==

== ENCOUNTER 2019-01-07 14:25 | Emergency (ER) | payer MEDICARE, OTHER ==
[2019-01-07 15:44] LABS: BASOPHILS % (AUTO) 0.5 %; EOSINOPHILS # (AUTO) 0.1 10^3/uL (0.0-0.7); EOSINOPHILS % (AUTO) 1.2 %; HGB - HEMOGLOBIN 11.8 g/dL (14.0-18.0); LYMPHOCYTES % (AUTO) 12.9 %; MEAN CORPUSCULAR HEMOGLOBIN 29.8 pg (27.0-31.0); MEAN CORPUSCULAR HGB CONC 32.4 g/dL (32.0-36.0); MEAN CORPUSCULAR VOLUME 92.1 fL (80.0-94.0); MEAN PLATELET VOLUME 8.4 fL (7.4-11.4); MONOCYTES # (AUTO) 0.8 10^3/uL (0.0-1.0); MONOCYTES % (AUTO) 10.7 %; NEUTROPHILS # (AUTO) 5.8 10^3/uL (1.5-6.6); NEUTROPHILS % (AUTO) 74.7 %; PLT - PLATELET COUNT 265 10^3/uL (130-450); RED BLOOD COUNT 3.94 10^6/uL (4.70-6.10); RED CELL DISTRIBUTION WIDTH 16.5 % (12.0-15.0); WHITE BLOOD COUNT 7.8 x10^3/uL (4.8-10.8)
--- NOTE | 2019-01-07 15:52 | ED Physician Documentation ---
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 Patient also complains of generalized weakness and lightheadedness without syncope. Patient denies any new medications including antibiotics, recent travel, or new foods, as well as any exposures to other sick contacts prior to onset of GI symptoms. Patient reports the nausea and vomiting have subsided. Patient also reports that diarrhea, nonbloody, has improved, but not completely resolved. Patient adamantly denies any abdominal pain, as well as chest pain, difficulty breathing, cough, fever, or urinary changes. Patient denies any complications with his pancreatic stent. Catheter is in place and he denies any new changes to the substance or color of fluid in his catheter. No new bloody drainage present. No other improving or worsening factors noted. Review of Systems Constitutional: denies: Fever Cardiac: denies: Chest pain / pressure Respiratory: denies: Dyspnea GI: reports: Nausea, Vomiting, Diarrhea. denies: Abdominal Pain PD PAST MEDICAL HISTORY - Past Medical History Cardiovascular: Peripheral Vascular Disease, Deep vein thrombosis Respiratory: Other Endocrine/Autoimmune: None, Other GI: GERD, Pancreatitis : Other HEENT: None Psych: None Musculoskeletal: None Derm: None - Past Surgical History Past Surgical History: Yes General: Colonoscopy Cardiovascular: Fempop bypass, Vascular surgery - Present Medications Home Medications: Ambulatory Orders Medication Instructions Recorded Confirmed Multivitamin [Multivitamins] 1 each PO DAILY 11/28/12 12/05/18 Ondansetron [Zofran] 4 mg PO Q6H PRN 05/04/16 12/05/18 Omeprazole 20 mg PO BIDAC 06/01/16 12/05/18 Ferrous Gluconate 324 mg PO DAILY 08/22/16 12/05/18 Apixaban [Eliquis] 1 tab PO BID 10/25/17 12/05/18 HYDROcod/ACETAM 5/325 [[place] 5/325] 1 - 2 ea PO Q6H PRN #15 tablet 11/02/17 12/05/18 Imatinib Mesylate [Gleevec] 200 mg PO DAILY PM 30 Days #60 08/25/18 12/05/18 tablet NS Imatinib Mesylate [Gleevec] 400 mg PO DAILY PM 30 Days #30 08/25/18 12/05/18 tablet NS - Allergies Allergies/Adverse Reactions: Allergies Allergy/AdvReac Type Severity Reaction Status Date / Time No Known Drug Allergies Allergy Verified 01/07/19 14:33 - Social History Does the pt smoke?: Yes Smoking Status: Current every day smoker Does the pt drink ETOH?: Yes Does the pt have substance abuse?: No - Immunizations Immunizations are current?: Yes - POLST Patient has POLST: No POLST Status: [facility] for Health Care PD ED PE NORMAL - Vitals Vital signs reviewed: Yes - General General: Alert and oriented X 3, No acute distress, Well developed/nourished - HEENT HEENT: Atraumatic, Moist mucous membranes - Cardiac Cardiac: RRR, No murmur - Respiratory Respiratory: No respiratory distress, Clear bilaterally - Abdomen Abdomen: Normal bowel sounds, Soft, Non tender, Non distended, Other (Pancreatic stent catheter intact with somewhat translucent, yellow fluid in tubing) - Derm Derm: Normal color, Warm and dry, No rash - Extremities Extremities: No deformity, No tenderness to palpate - Neuro Neuro: Alert and oriented X 3, No motor deficit, No sensory deficit - Psych Psych: Normal mood, Normal affect Results - Vitals Vitals: Vital Signs - 24 hr 01/07/19 01/07/19 14:32 16:32 Temperature 36.7 C Heart Rate 106 H 80 Respiratory 18 18 Rate Blood Pressure 129/81 H 130/87 H O2 Saturation 99 98 Oxygen O2 Source Room air - Labs Labs: Laboratory Tests 01/07/19 01/07/19 01/07/19 15:18 15:18 18:32 WBC 7.8 RBC 3.94 L Hgb 11.8 L Hct 36.3 L MCV 92.1 MCH 29.8 MCHC 32.4 RDW 16.5 H Plt Count 265 MPV 8.4 Neut # (Auto) 5.8 Lymph # (Auto) 1.0 L [place] # (Auto) 0.8 Eos # (Auto) 0.1 Baso # (Auto) 0.0 Absolute Nucleated RBC 0.00 Nucleated RBC % 0.0 Sodium 137 Potassium 3.5 Chloride 104 Carbon Dioxide 18 L Anion Gap 15.0 H BUN 34 H Creatinine 2.6 H Estimated GFR (MDRD) 25 L Glucose 110 H Calcium 9.2 Total Bilirubin 0.5 AST 28 ALT 17 Alkaline Phosphatase 109 Total Protein 7.3 Albumin 3.9 Globulin 3.4 Albumin/Globulin Ratio 1.1 Lipase 94 H Urine Color YELLOW Urine Clarity CLEAR Urine pH 5.0 Ur Specific [place] 1.025 Urine Protein TRACE Urine Glucose (UA) NEGATIVE Urine Ketones NEGATIVE Urine Occult Blood TRACE-LYSE Urine Nitrite NEGATIVE Urine Bilirubin NEGATIVE Urine Urobilinogen 0.2 (NORMAL) Ur Leukocyte Esterase NEGATIVE Ur Microscopic Review NOT INDICATED Urine Culture Comments NOT INDICATED PD MEDICAL DECISION MAKING - ED course Complexity details: reviewed old records, reviewed results, re-evaluated patient, considered differential, d/w patient ED course: Patient presenting with symptoms likely related to gastroenteritis, viral illness, foodborne pathogen, particularly given his lack of abdominal pain. However, patient has complicated past medical and surgical history with recent procedure. Patient started on IV fluids for rehydration. Patient declined nausea and pain medication at this time. Screening lab work and urinalysis obtained which was relatively unremarkable and only abnormalities noted were consistent with his underlying disease processes and relatively unchanged from previous measurements when compared. CT abdomen/pelvis obtained without contrast given his kidney disease. No acute findings to indicate complications related to the pancreatic stent, obstruction, new infection, or other issue at this time. Patient had no further symptoms in the ED and is comfortable. Patient is advised of results and recommendations and is comfortable with discharge plan. Departure - Departure Disposition: 01 Home, Self Care Clinical Impression: Diarrhea Qualifiers: Diarrhea type: unspecified type Qualified Code(s): R19.7 - Diarrhea, unspecified Condition: Good Instructions: ED Diet Vomiting Diarrhea Follow-Up: Blanca Lowe ARNP [Primary Care Provider] - Within 3 Days Comments: Please continue all home medications as previously recommended. Recommend hydration with Powerade, Gatorade, Pedialyte and advancing diet as tolerated starting with bland foods first. Please follow-up with your primary care physician and oncologist tomorrow. Return to ED sooner if you experience worsening symptoms or have other concerns.
[2019-01-07 16:02] LABS: ALBUMIN 3.9 g/dL (3.2-5.5); ALBUMIN/GLOBULIN RATIO 1.1 (1.0-2.2); BILIRUBIN,TOTAL 0.5 mg/dL (0.2-1.0); CALCIUM 9.2 mg/dL (8.5-10.3); CREATININE 2.6 mg/dL (0.6-1.2); TOTAL PROTEIN 7.3 g/dL (6.7-8.2)
[2019-01-07] MEDS ORDERED: SODIUM CHLORIDE 0.9% 1,000 ML IV ONE ×2 (16:15→17:58)
--- NOTE | 2019-01-07 18:20 | CT Report ---
Reason: n/v/d, recent pancreatic stent placement Procedure Date: 01/07/2019 Accession Number: [id number] / [id number] Procedure: CT - Abdomen/Pelvis WO CPT Code: FULL RESULT: EXAM: CT ABDOMEN AND PELVIS EXAM DATE: 01/07/2019 05:11 PM. CLINICAL HISTORY: Nausea, vomiting, and diarrhea. Recent pancreatic stent placement. COMPARISONS: ABDOMEN W/WO 08/22/2018 2:26 PM. TECHNIQUE: Routine helical CT imaging was performed through the abdomen and pelvis. IV contrast: None. Enteric contrast: No. Reconstructions: Coronal and sagittal. In accordance with CT protocol optimization, one or more of the following dose reduction techniques were utilized for this exam: automated exposure control, adjustment of mA and/or KV based on patient size, or use of iterative reconstructive technique. FINDINGS: Lung Bases: Unremarkable. Liver: Normal. No masses. Gallbladder/Bile Ducts: Distended gallbladder. No gallstones or dilated ducts. Spleen: Normal. Pancreas: Pancreatic duct stent noted, otherwise unremarkable. Adrenal Glands: Normal. Kidneys: Normal. No masses or hydronephrosis. Peritoneal Cavity/Bowel: Mild diverticulosis. No free fluid, free air or adenopathy. No masses or acute inflammatory process. The appendix is well visualized and normal. Pelvic Organs: Normal. The bladder and visualized pelvic organs are within normal limits. Vasculature: No aortic enlargement. Advanced atherosclerotic calcification. Femorofemoral graft noted. IVC filter noted, with tines rejecting outside the lumen. Bones: Degenerative disk disease at L1-L2 and L2-L3. Other: Interval placement of pigtail drainage catheter within posterior left pararenal inflammatory soft tissue thickening, much improved. Small fat-containing right inguinal hernia. IMPRESSION: 1. Interval placement of pancreatic duct stent, with no ductal dilatation. 2. Interval placement of pigtail drainage catheter within the left posterior pararenal inflammatory soft tissue thickening, with significant improvement. 3. Distended gallbladder noted. 4. Mild diverticulosis without diverticulitis. RADIA
[2019-01-07 18:37] LABS: BILIRUBIN,URINE NEGATIVE (NEGATIVE); GLUCOSE, URINE (UA) NEGATIVE (NEGATIVE); KETONES,URINE (UA) NEGATIVE (NEGATIVE); LEUKOCYTE ESTERASE, URINE NEGATIVE (NEGATIVE); NITRITE,URINE NEGATIVE (NEGATIVE); OCCULT BLOOD,URINE TRACE-LYSE (NEGATIVE); PROTEIN,URINE TRACE mg/dL (NEGATIVE); UROBILINOGEN,URINE 0.2 (NORMAL) E.U./dL (NORMAL)
[2019-01-07 18:40] LABS: CLARITY,URINE CLEAR (CLEAR)
[2019-01-07 19:11] VITALS: BP 151/93
== END 2019-01-07 19:30 | disposition home or self-care (01) ==
LOC: ED 14:25
DX: R19.7 Diarrhea, unspecified (principal); R11.2 Nausea with vomiting, unspecified; R42 Dizziness and giddiness; R53.1 Weakness; N18.6 End stage renal disease; D63.1 Anemia in chronic kidney disease; D68.51 Activated protein C resistance; I73.9 Peripheral vascular disease, unspecified; C92.91 Myeloid leukemia, unspecified in remission; Z86.711 Personal history of pulmonary embolism; Z86.718 Personal history of other venous thrombosis and embolism; Z79.01 Long term (current) use of anticoagulants; F17.200 Nicotine dependence, unspecified, uncomplicated
CPT/HCPCS: 36415; 74176; 80053; 81001; 81003; 83690; 85025; 87086; 96360; 96361; 99282; 99283

== ENCOUNTER 2019-03-23 10:38 | Outpatient (CLI) | payer MEDICARE, OTHER | END 2019-03-23 10:39 | disposition critical access hospital (66) | LOC: EMS 10:38 | PROVIDERS: ATTEND Surgery | DX: R22.2 Localized swelling, mass and lump, trunk (principal); R10.9 Unspecified abdominal pain | CPT/HCPCS: A0425; A0429 ==

== ENCOUNTER 2019-03-23 11:09 | Emergency (ER) | payer MEDICARE, OTHER ==
--- NOTE | 2019-03-23 11:55 | ED Physician Documentation ---
PD HPI SKIN - Stated complaint Stated Complaint: DRAIN ISSUES - Chief complaint Chief Complaint: Wound - History obtained from History obtained from: Patient - History of Present Illness Timing - onset: How many days ago (few) Timing - details: Gradual onset (He has had problems with pancreatic fistula drainage. He had a pancreatic stent placed at [facility] to promote dr gao appropriately. He had had minimal to no drainage out of his pancreatic drain. The drain fell out about 3 weeks ago and had been doing okay. Last few days he had noticed some redness swelling and tenderness under the skin at the site of the healing draining site. There is no drainage from it at this time. It had sealed over with skin.) Review of Systems Constitutional: denies: Fever, Chills, Myalgias GI: reports: Abdominal Pain (ongoing) Musculoskeletal: denies: Back pain Neurologic: reports: Generalized weakness. denies: Focal weakness, Numbness PD PAST MEDICAL HISTORY - Past Medical History Past Medical History: Yes Cardiovascular: Peripheral Vascular Disease, Deep vein thrombosis Respiratory: Other Neuro: None Endocrine/Autoimmune: None, Other GI: GERD, Pancreatitis : Other HEENT: None Psych: None Musculoskeletal: None Derm: None - Past Surgical History Past Surgical History: Yes General: Colonoscopy Cardiovascular: Fempop bypass, Vascular surgery - Present Medications Home Medications: Ambulatory Orders Medication Instructions Recorded Confirmed Multivitamin [Multivitamins] 1 each PO DAILY 11/28/12 03/13/19 Ondansetron [Zofran] 4 mg PO Q6H PRN 05/04/16 03/13/19 Omeprazole 20 mg PO BIDAC 06/01/16 03/13/19 Ferrous Gluconate 324 mg PO DAILY 08/22/16 03/13/19 Apixaban [Eliquis] 1 tab PO BID 10/25/17 03/13/19 HYDROcod/ACETAM 5/325 [[place] 5/325] 1 - 2 ea PO Q6H PRN #15 tablet 11/02/17 03/13/19 Imatinib Mesylate [Gleevec] 200 mg PO DAILY PM 30 Days #60 08/25/18 03/13/19 tablet NS Imatinib Mesylate [Gleevec] 400 mg PO DAILY PM 30 Days #30 08/25/18 03/13/19 tablet NS Doxycycline Hyclate 100 mg PO BID #20 capsule 03/23/19 - Allergies Allergies/Adverse Reactions: Allergies Allergy/AdvReac Type Severity Reaction Status Date / Time No Known Drug Allergies Allergy Verified 03/23/19 11:23 - Social History Does the pt smoke?: Yes Smoking Status: Current every day smoker Does the pt drink ETOH?: Yes Does the pt have substance abuse?: No - Immunizations Immunizations are current?: Yes - POLST Patient has POLST: No POLST Status: [facility] for [facility] PD ED PE NORMAL - Vitals Vital signs reviewed: Yes - General General: Alert and oriented X 3, No acute distress, Well developed/nourished - HEENT HEENT: Atraumatic - Neck Neck: Supple, no meningeal sign, No adenopathy - Cardiac Cardiac: RRR, No murmur - Respiratory Respiratory: Clear bilaterally - Abdomen Abdomen: Soft, Non tender - Back Back: Other (left parathoracic area with bubbble shaped area of scar tissue. Old wound from drain is healing with rounded area of skin in central, is it closed without drainage. Surrounding redness and some tender, no fluctuance. ) - Derm Derm: Normal color, Warm and dry Results - Vitals Vitals: Vital Signs - 24 hr 03/23/19 03/23/19 11:10 12:59 Temperature 36.8 C Heart Rate 103 H 96 Respiratory 17 14 Rate Blood Pressure 149/88 H 125/78 O2 Saturation 100 96 Oxygen O2 Source Room air - Labs Labs: Microbiology 03/23/19 12:17 Wound Culture - Preliminary Back - Lower Procedures - Abscess I&D (location) left lower thoracic back Preparation: Lidocaine 1%, With epi Incision: Incised with scalpel, Purulent drainage, Irrigated, Culture obtained. No: Packed Other: Pt tolerated well, Dressing applied, Antibiotic prescribed PD MEDICAL DECISION MAKING - ED course Complexity details: reviewed old records, considered differential (seems more clinically like abscess under skin/soft tissue and came out copiously when lanced, rather than recurrent fistula. ), d/w patient Departure - Departure Disposition: 01 Home, Self Care Clinical Impression: Wound abscess Condition: Stable Record reviewed to determine appropriate education?: Yes Instructions: ED Abscess IandD Follow-Up: Shaista Alvarez PA-C [Primary Care Provider] - Prescriptions: Doxycycline Hyclate 100 mg PO BID #20 capsule Comments: Absorbent dressing over the site to absorb any drainage. Warm moist compresses to the area to help promote drainage as well. This looks more like a wound infection under the skin at the site and hopefully not recurrent drainage of the pancreatic fluid. I did do a culture to see what germs are growing there. We will start doxycycline antibiotic twice daily in the meantime. Call Dr. Ruiz's office for follow-up appointment today. Presume they will follow-up next week. I did talk to Christine, one of the nurses in the office, and conveyed what we did and are prescribing. Discharge Date/Time: 03/23/19 12:59
[2019-03-23] MEDS ORDERED: DOXYCYCLINE 100 MG TABLET PO STA (12:23)
[2019-03-23 13:00] VITALS: BP 125/78
== END 2019-03-23 12:59 | disposition home or self-care (01) ==
LOC: EDUNIT# → ED 11:09
DX: T81.49XA Infection following a procedure, other surgical site, initial encounter (principal); F17.200 Nicotine dependence, unspecified, uncomplicated
CPT/HCPCS: 10060; 87070; 87077; 87181; 87205; 99283; 99284; A9270

== ENCOUNTER 2019-05-13 09:51 | Emergency (ER) | payer MEDICARE, OTHER ==
[2019-05-13 09:58] VITALS: BP 105/70
--- NOTE | 2019-05-13 10:11 | ED Physician Documentation ---
PD HPI ABD PAIN - Stated complaint Stated Complaint: SIDE PX - Chief complaint Chief Complaint: General - History obtained from History obtained from: Patient - History of Present Illness Timing - onset: How many days ago (2-3) Timing - duration: Days (2-3) Timing - details: Abrupt onset (has had prior abscess area that healed over reaccumulate with fluid and pressure. Redness at the skin as well.) Quality: Aching, Pain Location: Other (left flank area at site of prior fistula drainage. It had heale d after pancreatic stent draining better in normal function. fistula tract supposedly healed. The skin site has had recurrent infection though, with scarring tissue in the cavity of it.) Radiation: Left flank Worsened by: Moving, Palpation Associated symptoms: No: Fever, Nausea, Vomiting Similar symptoms before: Diagnosis (recurrent abscess in that site.) Review of Systems Constitutional: denies: Fever, Chills, Myalgias GI: denies: Nausea, Vomiting, Diarrhea PD PAST MEDICAL HISTORY - Past Medical History Cardiovascular: Peripheral Vascular Disease, Deep vein thrombosis Respiratory: Other Neuro: None Endocrine/Autoimmune: None, Other GI: GERD, Pancreatitis : Other HEENT: None Psych: None Musculoskeletal: None Derm: None - Past Surgical History Past Surgical History: Yes General: Colonoscopy Cardiovascular: Fempop bypass, Vascular surgery - Present Medications Home Medications: Ambulatory Orders Medication Instructions Recorded Confirmed Multivitamin [Multivitamins] 1 each PO DAILY 11/28/12 03/13/19 Ondansetron [Zofran] 4 mg PO Q6H PRN 05/04/16 03/13/19 Omeprazole 20 mg PO BIDAC 06/01/16 03/13/19 Ferrous Gluconate 324 mg PO DAILY 08/22/16 03/13/19 Apixaban [Eliquis] 1 tab PO BID 10/25/17 03/13/19 HYDROcod/ACETAM 5/325 [[place] 5/325] 1 - 2 ea PO Q6H PRN #15 tablet 11/02/17 03/13/19 Imatinib Mesylate [Gleevec] 200 mg PO DAILY PM 30 Days #60 08/25/18 03/13/19 tablet NS Imatinib Mesylate [Gleevec] 400 mg PO DAILY PM 30 Days #30 08/25/18 03/13/19 tablet NS Doxycycline Hyclate 100 mg PO BID #20 capsule 03/23/19 Doxycycline Monohydrate 100 mg PO BID #20 tablet 05/13/19 Hydrocodone/Acetaminophen 1 each PO Q6H PRN #25 tablet 05/13/19 [Hydrocodon-Acetaminophen 5-325] - Allergies Allergies/Adverse Reactions: Allergies Allergy/AdvReac Type Severity Reaction Status Date / Time No Known Drug Allergies Allergy Verified 05/13/19 09:58 - Social History Does the pt smoke?: Yes Smoking Status: Current every day smoker Does the pt drink ETOH?: Yes Does the pt have substance abuse?: No - Immunizations Immunizations are current?: Yes - POLST Patient has POLST: No POLST Status: [facility] for Health Care PD ED PE NORMAL - Vitals Vital signs reviewed: Yes - General General: Alert and oriented X 3, No acute distress, Well developed/nourished - Cardiac Cardiac: RRR, No murmur - Respiratory Respiratory: Clear bilaterally - Abdomen Abdomen: Normal bowel sounds, Soft, Non distended, No organomegaly - Back Back: Other (left flank with scarred area and the central skin over it is thin with bulging fluid underlying, and redness of the skin just at edges. Tender at the area. ) - Derm Derm: Normal color, Warm and dry Results - Vitals Vitals: Vital Signs - 24 hr 05/13/19 09:57 Temperature 36.6 C Heart Rate 107 H Respiratory 18 Rate Blood Pressure 105/70 O2 Saturation 98 Oxygen O2 Source Room air - Labs Labs: Microbiology 05/13/19 10:32 Wound Culture - Preliminary Back - Lower Procedures - Abscess I&D (location) left flank Preparation: Lidocaine 1% Incision: Incised with scalpel, Purulent drainage, Irrigated, Culture obtained, Other (to test for amylase). No: Packed Other: Pt tolerated well, Dressing applied, Antibiotic prescribed PD MEDICAL DECISION MAKING - ED course Complexity details: reviewed results (culture obtained. Had some fluid on applicator to test for amylase but lab could not process (needed to be in tube and already had finished procedure).), considered differential (recurrent abscess in flank. Purulent material out. with cellulitic changes around the site as well. ), d/w patient Departure - Departure Disposition: 01 Home, Self Care Clinical Impression: Abscess or cellulitis of flank Condition: Stable Record reviewed to determine appropriate education?: Yes Instructions: ED Abscess IandD Follow-Up: Shaista Alvarez PA-C [Primary Care Provider] - Edmundo Childs MD [Provider Admit Priv/Credential] - Prescriptions: Doxycycline Monohydrate 100 mg PO BID #20 tablet Hydrocodone/Acetaminophen [Hydrocodon-Acetaminophen 5-325] 1 each PO Q6H PRN #25 tablet PRN Reason: pain Comments: Change the dressings as needed for the drainage. Doxycycline monohydrate twice daily for 10 days for the infection. The lab/culture result will be available in a day or 2. Tylenol or ibuprofen if needed for pains. Add hydrocodone if needed. Recheck if not improving well over the next couple of days. Discharge Date/Time: 05/13/19 10:47
== END 2019-05-13 10:47 | disposition home or self-care (01) ==
LOC: ED 09:51
DX: L02.211 Cutaneous abscess of abdominal wall (principal); F17.200 Nicotine dependence, unspecified, uncomplicated
CPT/HCPCS: 10060; 87070; 87077; 87181; 87205

== ENCOUNTER 2019-07-16 09:30 | Outpatient (CLI) | payer MEDICARE, OTHER | END 2019-07-16 23:59 | disposition home or self-care (01) | LOC: LAB.R 09:30 | PROVIDERS: ATTEND Physician Assistant Medical | DX: K63.2 Fistula of intestine (principal) | CPT/HCPCS: 81599; 87070; 87075; 87076; 87077; 87186; 87205 ==

== ENCOUNTER 2019-09-20 12:59 | Outpatient (CLI) | payer MEDICARE, OTHER ==
--- NOTE | 2019-09-22 04:10 | CT Report ---
Reason: CHRONIC PANCREATITIS, PANCREATIC FISTULA Procedure Date: 09/20/2019 Accession Number: [id number] / [id number] Procedure: CT - ABDOMEN WO CPT Code: Final Report FULL RESULT: EXAM: CT ABDOMEN EXAM DATE: 09/20/2019 01:26 PM. CLINICAL HISTORY: Chronic pancreatitis, pancreatic fistula. COMPARISON: ABDOMEN/PELVIS W/O 01/07/2019 5:05 PM ABDOMEN W/WO 08/22/2018 2:26 PM. TECHNIQUE: Routine helical CT imaging was performed through the abdomen. IV contrast: Enteric contrast: No. Reconstruction: Coronal and sagittal. In accordance with CT protocol optimization, one or more of the following dose reduction techniques were utilized for this exam: automated exposure control, adjustment of mA and/or KV based on patient size, or use of iterative reconstructive technique. FINDINGS: Lung Bases: Trace left-sided pleural effusion associated with pleural thickening concerning for empyema. Liver: Normal. No masses. Gallbladder/Bile Ducts: Unremarkable. Spleen: Normal. Pancreas: Stable position of the pancreatic duct stent. No peripancreatic fluid collections. Adrenal Glands: Normal. Kidneys: Punctate nonobstructing right intrarenal stones. No hydronephrosis or suspicious renal lesions. Peritoneal Cavity/Bowel: Normal caliber of the visualized bowel without evidence of obstruction. Diverticulosis noted in the visualized aspect of the descending colon without CT evidence of acute diverticulitis. Retroperitoneum: Interval removal of the previously seen pigtail drainage catheter within the posterior pararenal region with interval development of a collection along the posterior wall of the left retroperitoneum containing foci of air concerning for abscess. This collection measures up to 2 x 6.3 x 5.6 cm. Vasculature atherosclerotic calcifications of the abdominal aorta without aneurysmal dilatation. IVC filter in stable position. Bones: No significant focal osseous lesions. Other: None. IMPRESSION: 1. Interval removal of the previously seen pigtail drainage catheter that was located in the posterior pararenal region with interval development of a collection along the posterior wall of the left retroperitoneum containing foci of air which is concerning for abscess. This collection measures up to 2 x 6.3 x 5.6 cm in the AP, transverse, and craniocaudal dimensions respectively. 2. Trace left-sided pleural effusion associated with pleural thickening concerning for empyema. 3. Pancreatic duct stent in stable position. 4. Nonobstructing right intrarenal stones. 5. Extensive atherosclerotic vascular disease. 6. IVC filter in place. RADIA
== END 2019-09-20 13:00 | disposition home or self-care (01) ==
LOC: DI 12:59
PROVIDERS: ATTEND Internal Medicine Gastroenterology
DX: K86.89 Other specified diseases of pancreas (principal); K86.1 Other chronic pancreatitis; J90 Pleural effusion, not elsewhere classified; N20.0 Calculus of kidney
CPT/HCPCS: 74150

== ENCOUNTER 2019-11-17 14:06 | Emergency (ER) | payer MEDICARE, OTHER ==
[2019-11-17 14:47] LABS: BASOPHILS % (AUTO) 0.3 %; HGB - HEMOGLOBIN 9.4 g/dL (14.0-18.0); LYMPHOCYTES # (AUTO) 0.5 10^3/uL (1.5-3.5); LYMPHOCYTES % (AUTO) 7.1 %; MEAN CORPUSCULAR HEMOGLOBIN 31.9 pg (27.0-31.0); MEAN CORPUSCULAR HGB CONC 32.4 g/dL (32.0-36.0); MEAN CORPUSCULAR VOLUME 98.3 fL (80.0-94.0); MEAN PLATELET VOLUME 9.4 fL (7.4-11.4); MONOCYTES # (AUTO) 0.5 10^3/uL (0.0-1.0); MONOCYTES % (AUTO) 7.1 %; NEUTROPHILS # (AUTO) 6.2 10^3/uL (1.5-6.6); NEUTROPHILS % (AUTO) 85.1 %; PLT - PLATELET COUNT 273 10^3/uL (130-450); RED BLOOD COUNT 2.95 10^6/uL (4.70-6.10); RED CELL DISTRIBUTION WIDTH 16.6 % (12.0-15.0); WHITE BLOOD COUNT 7.3 x10^3/uL (4.8-10.8)
[2019-11-17 15:00] LABS: ALBUMIN 3.5 g/dL (3.2-5.5); ALBUMIN/GLOBULIN RATIO 1.1 (1.0-2.2); ALKALINE PHOSPHATASE 186 IU/L (42-121); ALT ALANINE AMINOTRANSFERASE 21 IU/L (10-60); AST ASPARTATE AMINOTRANSFERASE 46 IU/L (10-42); BILIRUBIN,TOTAL < 0.2 mg/dL (0.2-1.0); BUN - BLOOD UREA NITROGEN 16 mg/dL (6-20); CALCIUM 8.4 mg/dL (8.5-10.3); CARBON DIOXIDE - CO2 18 mmol/L (21-32); CHLORIDE 106 mmol/L (101-111); CREATININE 2.3 mg/dL (0.6-1.2); GLUCOSE 109 mg/dL (70-100); LIPASE 136 U/L (22-51); SODIUM 136 mmol/L (135-145); TOTAL PROTEIN 6.6 g/dL (6.7-8.2)
--- NOTE | 2019-11-17 15:26 | ED Physician Documentation ---
History of Present Illness - Stated complaint Stated Complaint: LOW BACK WOUND BLEEDING - Chief complaint Chief Complaint: General - History obtained from History obtained from: Patient - History of Present Illness Timing: Other (69-year-old gentleman with history of pancreatic cancer, he has a pancreatic stent placed draining to the retroperitoneum, it is a chronic issue. Usually has some drainage, yellowish and he is a bit with just gauze pads. About 5 days ago the drainage became more profuse and more bloody. He estimates 100 mL a day. He is feeling more weak and dizzy than normal. No fevers.) Review of Systems Ten Systems: 10 systems reviewed and negative Constitutional: denies: Fever, Chills Cardiac: denies: Chest pain / pressure, Palpitations Respiratory: denies: Dyspnea, Cough GI: denies: Abdominal Pain PD PAST MEDICAL HISTORY - Past Medical History Cardiovascular: Peripheral Vascular Disease, Deep vein thrombosis Respiratory: Other Neuro: None Endocrine/Autoimmune: None, Other GI: GERD, Pancreatitis : Other HEENT: None Psych: None Musculoskeletal: None Derm: None - Past Surgical History Past Surgical History: Yes General: Colonoscopy Cardiovascular: Fempop bypass, Vascular surgery - Present Medications Home Medications: Ambulatory Orders Medication Instructions Recorded Confirmed Multivitamin [Multivitamins] 1 each PO DAILY 11/28/12 09/25/19 Ondansetron [Zofran] 4 mg PO Q6H PRN 05/04/16 09/25/19 Omeprazole 20 mg PO BIDAC 06/01/16 09/25/19 Ferrous Gluconate 324 mg PO DAILY 08/22/16 09/25/19 Apixaban [Eliquis] 1 tab PO BID 10/25/17 09/25/19 Imatinib Mesylate [Gleevec] 200 mg PO DAILY PM 30 Days #60 08/25/18 09/25/19 tablet NS Imatinib Mesylate [Gleevec] 400 mg PO DAILY PM 30 Days #30 08/25/18 09/25/19 tablet NS - Allergies Allergies/Adverse Reactions: Allergies Allergy/AdvReac Type Severity Reaction Status Date / Time No Known Drug Allergies Allergy Verified 09/25/19 12:58 - Social History Does the pt smoke?: Yes Smoking Status: Current every day smoker Does the pt drink ETOH?: Yes Does the pt have substance abuse?: No - Immunizations Immunizations are current?: Yes - POLST Patient has POLST: No POLST Status: [facility] Care PD ED PE NORMAL - Vitals Vital signs reviewed: Yes - General General: Alert and oriented X 3, No acute distress - HEENT HEENT: PERRL, EOMI - Neck Neck: Supple, no meningeal sign, No bony TTP - Cardiac Cardiac: RRR, No murmur - Respiratory Respiratory: No respiratory distress, Clear bilaterally - Abdomen Abdomen: Other (There is a draining fistula to the left flank with an ostomy bag over it. He says it was last changed at 6 AM this morning. I was about 9 ho urs ago. There is probably 60 mL of bloody fluid in it.) - Neuro Neuro: Alert and oriented X 3, Normal speech Results - Vitals Vitals: Vital Signs - 24 hr 11/17/19 11/17/19 14:18 15:30 Temperature 36.8 C Heart Rate 111 H 73 Respiratory 18 20 Rate Blood Pressure 128/71 135/72 H O2 Saturation 99 100 Oxygen O2 Source Room air - EKG (time done) 1757 Rate: Rate (enter#) (94) Rhythm: NSR (With frequent PVCs) [place]: Normal Intervals: Normal MI QRS: Normal Ischemia: Normal ST segments Computer interpretation: Agree with computer - Labs Labs: Laboratory Tests 11/17/19 11/17/19 14:40 14:40 WBC 7.3 RBC 2.95 L Hgb 9.4 L Hct 29.0 L MCV 98.3 H MCH 31.9 H MCHC 32.4 RDW 16.6 H Plt Count 273 MPV 9.4 Neut # (Auto) 6.2 Lymph # (Auto) 0.5 L [place] # (Auto) 0.5 Eos # (Auto) 0.0 Baso # (Auto) 0.0 Absolute Nucleated RBC 0.00 Nucleated RBC % 0.0 Sodium 136 Potassium 3.8 Chloride 106 Carbon Dioxide 18 L Anion Gap 12.0 BUN 16 Creatinine 2.3 H Estimated GFR (MDRD) 28 L Glucose 109 H Calcium 8.4 L Total Bilirubin < 0.2 L AST 46 H ALT 21 Alkaline Phosphatase 186 H Total Protein 6.6 L Albumin 3.5 Globulin 3.1 Albumin/Globulin Ratio 1.1 Lipase 136 H PD MEDICAL DECISION MAKING - ED course ED course: 69-year-old gentleman with known pancreatic cancer and a fistula presents with bleeding from the fistula. His H&H is stable. His creatinine is up significantly from the last on the chart. I discussed the case with Dr. Almendarez, on-call gastroenterology at [facility]. His H&H is stable but with the rising creatinine and blood loss he felt the patient should come down [facility] for ERCP. He was accepted by Dr. Casas at [facility], hospitalist service. He is stable for transport. Departure - Departure Disposition: 02 Transfer Acute Care Hosp Clinical Impression: CML (chronic myelocytic leukemia), Chronic kidney disease, stage 3 GI (gastrointestinal bleed) Qualifiers: GI bleed type/associated pathology: unspecified gastrointestinal hemorrhage typ e Qualified Code(s): K92.2 - Gastrointestinal hemorrhage, unspecified Condition: Stable
[2019-11-17] MEDS ORDERED: SODIUM CHLORIDE 0.9% 1,000 ML IV ONE (17:52)
[2019-11-17 18:23] VITALS: BP 128/73
== END 2019-11-17 18:35 | disposition short-term general hospital (02) ==
LOC: ED 14:06
DX: R58 Hemorrhage, not elsewhere classified (principal); K86.89 Other specified diseases of pancreas; K92.2 Gastrointestinal hemorrhage, unspecified; C92.10 Chronic myeloid leukemia, BCR/ABL-positive, not having achieved remission; N18.3 Chronic kidney disease, stage 3 (moderate); F17.200 Nicotine dependence, unspecified, uncomplicated; Z96.89 Presence of other specified functional implants
CPT/HCPCS: 36415; 80053; 83690; 85025; 93005; 99285